=== PATIENT | female | born 1985 | race Caucasian/White ===

== ENCOUNTER 2017-04-22 09:33 | Emergency (ER) | payer OTHER, SELFPAY ==
[2017-04-22 09:34] VITALS: BP 112/69; PULSE 59; RESP 16; TEMP 36.4; O2SAT 99; BMI 20.8
--- NOTE | 2017-04-22 09:41 | CT_ITS ---
STUDY: CT ABDOMEN AND PELVIS WITHOUT CONTRAST REASON FOR EXAM: Female, 31 years old. Left flank pain. RADIATION DOSAGE (If Supplied By Facility): CTDIvol = ( 6.05 ) mGy, DLP = ( 395.10 ) mGycm TECHNIQUE: Transaxial images were obtained from the dome of the diaphragm to the symphysis pubis without oral contrast, and without intravenous contrast. Sagittal and coronal images were reconstructed. Individualized dose optimization techniques were used for this CT. COMPARISON: None. FINDINGS: The left lateral aspect of the lower chest and upper abdomen are not entirely included on the axial images. The visualized portions of lung bases are unremarkable. The visualized portions of the heart are within normal limits. The liver is enlarged. Normal gallbladder and extrahepatic biliary system. Normal spleen. The pancreas is suboptimally visualized without oral contrast and due to lack of intra-abdominal fat. Normal bilateral adrenal glands. There are multiple small nonobstructing right renal stones, the largest measures about 4 mm in the upper pole. There is no evidence of right hydronephrosis. There are few nonobstructing stones in the left kidney, the largest measures about 3 mm in the lower pole. There is mild left hydronephrosis. There is a 2 mm calcification in the left lower pelvis which could represent stone in the distal ureter. There are additional pelvic calcifications which could be due to phleboliths. The examination is limited due to significant artifacts. The stomach is not well-distended. Normal small intestine. There is fecal retention. The appendix is not definitely identified. Normal abdominal aorta. Normal inferior vena cava. Suboptimal evaluation of the retroperitoneum without contrast. The bladder is not well-distended. There is limited evaluation of the pelvic region due to artifacts. May be very small umbilical hernia containing fat. Normal osseous structures. CT/Abdomen/Pelvis without Cont IMPRESSION: Hepatomegaly. Multiple small bilateral nonobstructing renal stones. Mild left hydronephrosis. Possible 2 mm stone in the distal left ureter close to the ureterovesical junction. Limited examination without contrast and due to artifacts. Electronically Signed: Luan Verdugo MD at 11:16 EST Tel , Service support ,
[2017-04-22] MEDS: Ondansetron 4 MG/2 ML Vial IV (09:45)
[2017-04-22] MEDS: 0.9% Normal Saline 1,000 ML 125 ML IV (09:45)
[2017-04-22] MEDS: Ketorolac 30 MG/ML Syringe IV (09:46)
[2017-04-22 09:56] LABS: Absolute Lymphocyte Count 2.45 X10^3/ul (0.83-4.51); Absolute Neutrophil Count 6.4 X10^3/uL (2.0-7.7); Basophil# 0.09 X10^3/uL; Basophil% 0.9 % (0-1); Eosinophils% 1.1 % (0-5); Hematocrit 41.1 % (37-47); Hemoglobin 13.5 g/dl (12.0-15.0); Lymphocyte # 2.45 X10^3/ul (4.0); Lymphocyte % 25.8 % (19-41); Mean Corp Hgb Conc 32.8 g/gl (32-36); Mean Corpuscular Hgb 30.5 pg (27.0-32.0); Mean Platelet Vol. 10.6 fl (6.2-12.0); Monocyte# 0.45 X10^3/uL; Monocyte% 4.7 % (0-10); Neutrophil # 6.39 X10^3/uL (2.7-7.7); Neutrophil % 67.4 % (47-70); Platelet Count 225 K/mm3 (150-450); RBC Distribution Width CV 12.9 % (11.6-14.6); Red Blood Count 4.42 M/mm3 (4.2-5.4); White Blood Count 9.5 K/mm3 (4.4-11.0)
[2017-04-22 09:57] LABS: POSITIVE COUNT NO; POSITIVE DIFFERENTIAL NO; POSITIVE MORPHOLOGY NO
[2017-04-22 10:03] LABS: Anion Gap 7 (5-15); BUN 23 mg/dL (7-18); BUN/Creat Ratio 28.7 RATIO (10-20); Calcium,Total 9.2 mg/dL (8.5-10.1); Chloride 109 mmol/L (98-107); EST Glomerular Filtration Rate 89 mL/min (>60); Est Glom Filt Rate - Afr Amer 108 mL/min (>60); Estimated Creatinine Clearance 77.59 ml/min; Glucose 108 mg/dL (74-106); Potassium 4.3 mmol/L (3.5-5.1); Sodium Level 142 mmol/L (136-145)
[2017-04-22 10:18] LABS: Pregnancy, Serum, hCG Quali. NEGATIVE Negative (0-9 Nonpreg)
[2017-04-22 10:52] LABS: Color, Urine Yellow (Yellow); Glucose, Dipstick Normal (Normal); Ketone-Dipstick Negative (Negative); Leukocyte Esterase-Dipstick 100 /ul (Negative); Nitrite-Dipstick Negative (Negative); Occult Blood-Urine 250 /ul (Negative); Protein-Dipstick 30 mg/dl (Negative); Specific Gravity, Urine 1.015 (1.002-1.030); Urine Bilirubin Dipstick Negative (Negative); Urine Clarity Cloudy (Clear); Urine Urobilinogen Normal (Normal)
[2017-04-22 10:59] LABS: Bacteria RARE /hpf (None Seen); Mucous, Urine 2+ /hpf (<or=2+); Red Blood Cells-Urine 10-25 SEEN /hpf (0-5); Squamous Epithelial Cells - UA 0-5 SEEN /hpf (5-10)
[2017-04-22 11:00] LABS: White Blood Cells 5-10 SEEN /hpf (0-5)
[2017-04-22 11:39] VITALS: BP 115/70; PULSE 62; RESP 14; O2SAT 99
--- NOTE | 2017-04-22 11:41 | ED.VISSUMM ---
- ER Visit Summary Date of Service: 04/22/17 Chief Complaint: [Left flank pain] History of Present Illness: The patient is a 31 F [presents to the emergency department chief complaint left flank pain that started earlier today. Patient had sudden onset of pain. Patient describes nausea and vomiting. Patient denies urinary symptoms. Patient denies any fever. Patient states she noticed a little bit of pink urine yesterday. Patient states that off-and-on she has had some mild discomfort in her left leg for the last month. Patient has had history of kidney stone in the past.] Physical Examination: [HEENT-PERRLA, EOMI. Cranial nerves II through XII grossly intact. TMs clear. Mucous membranes moist. No adenopathy. Cardiovascular-regular rate and rhythm without murmur or ectopy Lungs-clear to auscultation, chest wall stable without crepitus or subcu emphysema Abdomen-normoactive bowel sounds, soft. Patient has mild tenderness over left lower quadrant and CVA tenderness on the left. There is no rebound, rigidity, or perineal signs.. Extremities-intact ?4, normal range of motion, normal pulses, atraumatic] Test Results: [CBC with differential obtained was normal. Chemistries unremarkable. Urinalysis showed 10-25 RBCs without signs of infection. HCG was negative. CT flank showed a 2 mm stone at the left UVJ.] Emergency Department Course and Treatment: [Patient initially was medicated with Toradol, Zofran, and morphine. She had good pain relief with that. Her pain did return and she was written for 4 more milligrams of morphine.] Treatment Plan: [Patient will be given urine strainers and a prescription for [place] and Naprosyn. 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 Patient advised to return if worsening pain, fever, vomiting, or condition should worsen in any way.] Impression: [Urolithiasis left sided] This note was generated with Luminescent dictation software. It may contain incorrect words, spelling, and punctuation that were not noted in review of the chart prior to signing ED Disposition - Plan for ED Patient: Chief Complaint: Flank Pain Referrals: Andrea Andrews MD [Primary Care Provider] -
--- NOTE | 2017-04-22 11:43 | ED.DEP ---
ED Disposition - Plan for ED Patient: Chief Complaint: Flank Pain Instructions: ED Stone Renal W Colic Prescriptions: Hydrocodone Bitart/Apap 5-325 [Andreas 5/325] 1 - 2 tab PO Q4H PRN PRN 5 Days #20 tab PRN Reason: Pain Ondansetron [Zofran Odt] 4 mg PO Q8H PRN PRN #10 tab PRN Reason: Nausea Naproxen [Naprosyn] 500 mg PO BID PRN #20 tab Referrals: Andrea Andrews MD [Primary Care Provider] - Godwin Mayo MD [STAFF PHYSICIAN] - 3-5 Days
[2017-04-22 11:52] VITALS: BP 120/70; PULSE 58; RESP 14; O2SAT 99
== END 2017-04-22 12:14 | disposition home or self-care (01) ==
PROVIDERS: Emergency Provider Emergency Medicine; Family Provider Family Medicine; PCP Family Medicine
DX: N20.1 Calculus of ureter (principal); Z87.442 Personal history of urinary calculi
CPT/HCPCS: 74176; 80048; 81001; 84703; 85025; 96361; 96374; 96375; 96376; 99283; J7030; A4216; J2405

== ENCOUNTER → 2017-05-20 10:28 | Outpatient (CLI) | payer OTHER, SELFPAY ==
--- NOTE | 2017-05-20 10:31 | US_ITS ---
STUDY: ABDOMINAL ULTRASOUND - RIGHT UPPER QUADRANT REASON FOR VISIT: Female, 31 years old. Right upper quadrant pain TECHNIQUE: Transverse and longitudinal imaging of the right upper quadrant was performed using real-time ultrasound. COMPARISON: CT abdomen and pelvis dated April 22, 2017 FINDINGS: Liver: The liver measures 16 cm. There is normal echogenicity of the liver. The direction of portal flow is hepatopetal. There is no demonstrated mass in the liver. Gallbladder: The gallbladder is normal in size. The gallbladder wall measures 2.0 mm. There is a negative sonographic Bourne's sign. There is no demonstrated pericholecystic fluid. There are no abnormalities in the lumen of the gallbladder. Common Bile Duct (C.B.D.): The common bile duct measures 2.6 mm. Pancreas: The pancreas was not visualized. Right Kidney: The right kidney measures 10.6 cm. The right cortex measures 1.5 cm. There is no demonstrated mass in the right kidney. There is prominence of the collecting system in the lower pole of the right kidney. There is an echogenic focus in the upper pole measuring about 5 mm. There is no demonstrated free fluid. US/Abdomen Limited IMPRESSION: Limited study. There is prominence of the collecting system in the lower pole of the right kidney. There may be a calyceal stone in the upper pole measuring 5 mm. No abnormalities are seen in the liver or gallbladder. Electronically Signed: Chasidy Jose MD at 2:15 EDT Tel Direct: [phone], Service support ,
== END ==
PROVIDERS: Family Provider Family Medicine; PCP Family Medicine; Visit Provider Family Medicine
DX: R10.11 Right upper quadrant pain (principal)
CPT/HCPCS: 76705

== ENCOUNTER → 2018-06-07 09:58 | Outpatient (CLI) | payer OTHER, SELFPAY ==
[2017-05-26 17:26] VITALS: BMI 19.3
[2018-06-07 10:30] LABS: Hematocrit 38.8 % (37-47); Hemoglobin 13.1 g/dl (12.0-15.0); Mean Corp Hgb Conc 33.8 g/gl (32-36); Mean Corpuscular Hgb 30.8 pg (27.0-32.0); Mean Corpuscular Volume 91.1 fL (81-99); Mean Platelet Vol. 10.4 fl (6.2-12.0); Platelet Count 216 K/mm3 (150-450); RBC Distribution Width CV 14.2 % (11.6-14.6); RBC Distribution Width SD 46.5 fl (35.1-43.9); Red Blood Count 4.26 M/mm3 (4.2-5.4); Scan Indicated on CBC? Y/N NO; White Blood Count 9.5 K/mm3 (4.4-11.0)
[2018-06-07 12:02] LABS: HIV - WCH Non-Reactive (Nonreactive); Rubella IgG 377.9 IU/mL
[2018-06-08 04:56] LABS: Rapid Plasmin Reagin (RPR) NONREACTIVE (NONREACTIVE)
[2018-06-08 11:25] LABS: HEPATITIS B SURFACE AG Negative (Negative)
== END ==
PROVIDERS: Family Provider Nurse Practitioner Family; PCP Nurse Practitioner Family; Referring Provider Obstetrics & Gynecology; Visit Provider Obstetrics & Gynecology
DX: Z34.81 Encounter for supervision of other normal pregnancy, first trimester (principal)
CPT/HCPCS: 36415; 85027; 86592; 86703; 86762; 86850; 86900; 87340

== ENCOUNTER 2018-11-28 09:10 | Inpatient (IN) | payer OTHER, SELFPAY ==
[2018-11-28 09:01] VITALS: BMI 25.0
[2018-11-28 09:01] LABS: ROM Internal Control Test YES-OK TO RESULT pt. (Internal QC)
[2018-11-28 09:03] LABS: ROM Patient Test POSITIVE (Negative); Record Kit Lot#, ROM+ J8255
--- NOTE | 2018-11-28 09:17 | PCM.HP.OB ---
- Problem List (1) PROM (premature rupture of membranes) Status: Acute (2) Post-dates Status: Acute History Date of Admission: 10/16/16 Final MICK: 11/25/18 Final MICK Source: US <20 weeks Gestational age: 40 Weeks and 3 Days History of this : This is a 33 year-old, G [3], P [2001], at 40weeks 3 days gestational age by first trimester US. Presented with complaint of leakage of fluid this am around 0400. Upon arrival ROM plus positive and admission to L&D. Good movement, denies vaginal bleeding. Medical History: Medical History (Last Updated 05/26/17 @ 17:29 by Nirmala Solis) Gave to child recently Z39.0 Allergies No Known Allergies Allergy (Verified 11/28/18 09:04) Home Medications: Home Medications Vits [Prenatabs FA ] 1 tab PO DAILY 08/12/14 Smoking Status: Never smoker Alcohol: None Number of Fetus(es): 1 NST - FHR Rate Baby A Baseline: 125 Variability:: Moderate Accelerations:: 15 x 15 NST Reactive:: Yes FHR Category:: Category I Uterine Activity:: Irregular History Past Pregnancies: Past Pregnancies Delivery Date Name GA/Weeks Outcome Route Weight Infant Gender Labor Length Anesthesia Delivery Location Provider FOB Labs: Mom's Problem List Problem Status Onset Code PROM (premature rupture of membranes) Acute O42.90 Post-dates Acute O48.0 Mom's Labs & Results 11/28/18 11/28/18 11/28/18 08:10 09:38 09:38 WBC 9.8 RBC 3.90 L Hgb 12.9 Hct 38.6 MCV 99.0 MCH 33.1 H MCHC 33.4 RDW Std Deviation 49.1 H RDW Coeff of Minnie 13.5 Plt Count 167 MPV 11.0 Immature Gran % (Auto) 0.500 Neut % (Auto) 73.1 H Lymph % (Auto) 19.5 [place] % (Auto) 5.9 Eos % (Auto) 0.6 Baso % (Auto) 0.4 Absolute Neuts (auto) 7.2 Absolute Lymphs (auto) 1.91 Nucleated RBC % 0 Vag Amniotic Fld Detect POSITIVE H Blood Type A POSITIVE Antibody Screen NEGATIVE Course Did the patient receive Yes care? Labs Blood Type: A RH: POSITIVE RPR/VDRL/Syphilis Nonreactive Rubella status Immune HbSAg Negative Date Done: 06/07/18 Chlamydia Negative Gonorrhea Negative HIV/AIDS Non-Reactive Group B Strep: Negative Current Obstetrical History Gestational Diabetes No Incompetent Cervix No Infertility No IUGR No Macrosomia No Hypertension/Pre-eclampsia No Placenta Previa/Abruption No PTL/PROM No Uterine anomaly No Oligohydramnios No Polyhydramnios No Multiple gestation No Past Medical History Asthma No Diabetes No Hypertension No Heart disease No Mitral valve prolapse No Neurologic/Seizure disorder/ No Migraines Kidney disease No Liver disease No Varicosities No Clotting disorders/Hx of DVT No Thyroid Dysfunction No Other medical diseases No Psychiatric disorders No Major trauma No Abnormal PAP smear No Sleep apnea No Mammogram in the last 2 years No Social History Marital Status: Alleged father Iron Hx Smoking No Smoking Status Never smoker Expected Infant Delivery Method: Spontaneous Vaginal Review of Systems Constitutional: Denies: Chills, Fever, Weight Change HEENT: Denies: Head Aches, Sinus Congestion, Sinus Drainage Cardiovascular: Denies: Chest Pain, Palpitations Respiratory: Denies: Cough, Shortness of breath at rest, Sputum production Gastrointestinal: Denies: Abdominal Pain, Nausea, Vomiting Genitourinary: Denies: Dysuria Musculoskeletal: Denies: Joint Pain, Joint Tenderness Skin: Denies: Rash, Wounds Neurological: Denies: Numbness, Tingling, Focal weakness Psychiatric: Denies: Anxiety, Depression, Homicidal Ideations, Suicidal Ideations Physical Exam General: Alert, Oriented x3, No apparent distress HEENT: Atraumatic, Normocephalic Cardiovascular: Regular rate, Regular Rhythm, No murmurs Lungs: Clear to auscultation, Normal air movement, No rhonchi, No wheeze Abdomen: Gravid Extremities:: No edema Neurological: Deep Tendon Reflexes 2+/4 and Symmetrical. 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 PROM Category1 FHT P: 1) Reviewed PROM with expectant vs. active management. R/B/A reviewed. Would like to continue with active management and Pitocin augmentation. 2) Admit to L&D, routine labs, IV 3) Pitocin augmentation per protocol 4) Would like unmedicated but open to epidural 5) collaborating physician and updated on patient status.
[2018-11-28] MEDS: Lactated Ringers 1,000 ML 50 ML IV (09:40)
[2018-11-28] MEDS: Oxytocin 30 units/NS 500 ml 30 UNITS/500 ML IV.SOLN IV (09:46)
[2018-11-28 09:58] LABS: Absolute Lymphocyte Count 1.91 X10^3/uL (0.83-4.51); Absolute Neutrophil Count 7.2 X10^3/uL (2.0-7.7); Basophil# 0.04 X10^3/uL; Basophil% 0.4 % (0-1); Eosinophil# 0.06 X10^3/uL; Eosinophils% 0.6 % (0-5); Hematocrit 38.6 % (37-47); Hemoglobin 12.9 g/dL (12.0-15.0); Lymphocyte # 1.91 X10^3/ul (4.0); Lymphocyte % 19.5 % (19-41); Mean Corp Hgb Conc 33.4 g/dL (32-36); Mean Corpuscular Hgb 33.1 pg (27.0-32.0); Monocyte# 0.58 X10^3/uL; Monocyte% 5.9 % (0-10); NRBC Flagged by Analyzer 0 % (0-5); Neutrophil # 7.17 X10^3/uL (2.7-7.7); Neutrophil % 73.1 % (47-70); Platelet Count 167 K/mm3 (150-450); RBC Distribution Width CV 13.5 % (11.6-14.6); RBC Distribution Width SD 49.1 fl (35.1-43.9); White Blood Count 9.8 K/mm3 (4.4-11.0)
--- NOTE | 2018-11-28 12:33 | PN.OBGYN_ITS ---
Patient Problems: Active and Suspected Problems (Last Updated 05/26/17 @ 17:29 by Nirmala Solis) PROM (premature rupture of membranes) (Acute) Post-dates (Acute) Subjective: Coping well with labor contractions. Sitting up on peanut ball, family at bedside. Objective: FHT 130, moderate variability, accels, no decels, Category 1 TOCO: every 4 minutes, mild SVE:4cm/80%/-2 vertex presentation. Forebag present. AROM for moderate amount of clear fluid, tolerated well. 4.5cm/80%/-1 after rupture. - Physical Exam Weight: 136 lb 10.986 oz Body Mass Index (BMI) 25.0 Laboratory Tests Past 24 Hrs 11/28/18 11/28/18 11/28/18 08:10 09:38 09:38 WBC 9.8 RBC 3.90 L Hgb 12.9 Hct 38.6 MCV 99.0 MCH 33.1 H MCHC 33.4 RDW Std Deviation 49.1 H RDW Coeff of Minnie 13.5 Plt Count 167 MPV 11.0 Immature Gran % (Auto) 0.500 Neut % (Auto) 73.1 H Lymph % (Auto) 19.5 [place] % (Auto) 5.9 Eos % (Auto) 0.6 Baso % (Auto) 0.4 Absolute Neuts (auto) 7.2 Absolute Lymphs (auto) 1.91 Nucleated RBC % 0 Vag Amniotic Fld Detect POSITIVE H Blood Type A POSITIVE Antibody Screen NEGATIVE Medical Necessity - Tobacco Use Smoking Status: Never smoker Assessment/Plan All Active Problems (Last Updated 05/26/17 @ 17:29 by Nirmala Solis) PROM (premature rupture of membranes) (Acute) Post-dates (Acute) Otitis media (Acute) A:PROM Category 1 FHT Labor augmentation P: 1)Continue with Pitocin augmentation, Pitocin at 8mu's 2) Epidural for pain management upon patient request
[2018-11-28] MEDS: Lactated Ringers 500 ML 999 ML IV ×2 (14:35→15:16)
[2018-11-28] MEDS: fentaNYL-bupivacaine (epidural) 100 ML BAG EPIDURAL (15:12)
[2018-11-28] MEDS: Oxytocin 30 units/NS 500 ml 30 UNITS/500 ML IV.SOLN 334 UNITS IV (16:07)
--- NOTE | 2018-11-28 16:22 | PCM.OPRPT ---
Problem List (1) PROM (premature rupture of membranes) Status: Acute (2) Post-dates Status: Acute (3) Vaginal delivery Status: Acute Vaginal Delivery Maternal Presentation: Spontaneous Rupture of Membranes Amniotic Membrane Rupture Type: Spontaneous - AROM forebag moderate amount of clear fluid Amniotic Fluid Description: Clear Final MICK: 11/25/18 Gestational age: 40 Weeks and 3 Days Date of Procedure: 11/28/18 Pre-Operative Diagnosis: PROM Post-Operative Diagnosis: Surgery/ Procedure Performed: Spontaneous Vaginal Delivery Type of Anesthesia: Epidural Description of Procedure: Progressed to completed with strong urge to push. Epidural not fully effective, feeling lots of pressure. of viable female infant over intact perineum. APGARS 8,9. Infant head delivered with body forthcoming, poor pushing efforts. Maternal efforts resumed and shoulders delivered. Infant placed on maternal abdomen, mouth and nares suctioned for secretions. Spontaneous cry. Pitocin started for active 3rd stage management. Cord clamped and cut after pulsations ceased. Placenta delivered with maternal effort, intact, 3 vessel cord. Perineum inspected and intact. EBL 300ml, fundus firm and hemostasis achieved. Vaginal sweep completed. notified of delivery. Mom and baby stable. Family bonding well. Presentation: Vertex Placental Delivery Description: Spontaneous Placenta Disposition: [facility] Cord Vessel Description: 3 Vessels Cord Entanglement: None Estimated Blood Loss: 300ml Infant A gender: Female (1 minute): 8 (5 minute): 9 Episiotomy Description: None Laceration: None Medications given after delivery: IV Pitocin Complications: None
[2018-11-28 20:47] VITALS: BP 94/56; PULSE 79; RESP 15; TEMP 37.2; O2SAT 94
[2018-11-29] VITALS: BP 101/57; PULSE 73; RESP 15; TEMP 36.7; O2SAT 97
[2018-11-29 03:39] VITALS: BP 99/61; PULSE 60; RESP 15; TEMP 36.7; O2SAT 99
[2018-11-29 07:15] LABS: Hematocrit 38.3 % (37-47); Hemoglobin 12.8 g/dL (12.0-15.0); Mean Corp Hgb Conc 33.4 g/dL (32-36); Mean Corpuscular Hgb 33.1 pg (27.0-32.0); Mean Platelet Vol. 10.6 fl (6.2-12.0); Platelet Count 148 K/mm3 (150-450); RBC Distribution Width CV 13.5 % (11.6-14.6); RBC Distribution Width SD 48.4 fl (35.1-43.9); Red Blood Count 3.87 M/mm3 (4.2-5.4); White Blood Count 13.2 K/mm3 (4.4-11.0)
[2018-11-29 08:06] VITALS: BP 105/57; PULSE 92; RESP 16; TEMP 36.2; O2SAT 100
--- NOTE | 2018-11-29 09:39 | PCM.PN.OB ---
Patient Problems: Active and Suspected Problems (Last Updated 05/26/17 @ 17:29 by Nirmala Solis) PROM (premature rupture of membranes) (Acute) Post-dates (Acute) Vaginal delivery (Acute) Subjective: No complaints - Physical Exam General: Alert, Oriented x3 Abdomen: Soft, Non Tender, Non-Distended - ff mid & below umb Extremities: No Calf Tenderness Vital Signs Temp Pulse Resp BP Pulse Ox 97.1 F L 92 16 105/57 L 100 11/29/18 08:06 11/29/18 08:06 11/29/18 08:06 11/29/18 08:06 11/29/18 08:06 Oxygen Delivery Method Room Air Weight: 136 lb 10.986 oz Body Mass Index (BMI) 25.0 Intake and Output for Last 24 Hours 11/27/18 11/28/18 11/29/18 23:59 23:59 23:59 Intake Total 2192.29 / 2192.29 Output Total 1999 Balance 192.29 / 192.29 Laboratory Tests Past 24 Hrs 11/28/18 11/28/18 11/29/18 09:38 09:38 07:09 WBC 9.8 13.2 H RBC 3.90 L 3.87 L Hgb 12.9 12.8 Hct 38.6 38.3 MCV 99.0 99.0 MCH 33.1 H 33.1 H MCHC 33.4 33.4 RDW Std Deviation 49.1 H 48.4 H RDW Coeff of Minnie 13.5 13.5 Plt Count 167 148 L MPV 11.0 10.6 Immature Gran % (Auto) 0.500 Neut % (Auto) 73.1 H Lymph % (Auto) 19.5 [place] % (Auto) 5.9 Eos % (Auto) 0.6 Baso % (Auto) 0.4 Absolute Neuts (auto) 7.2 Absolute Lymphs (auto) 1.91 Nucleated RBC % 0 Blood Type A POSITIVE Antibody Screen NEGATIVE Medical Necessity - Tobacco Use Smoking Status: Never smoker Assessment/Plan All Active Problems (Last Updated 05/26/17 @ 17:29 by Nirmala Solis) PROM (premature rupture of membranes) (Acute) Post-dates (Acute) Vaginal delivery (Acute) Otitis media (Acute) PPD#1 D/c home later today per patient request
--- NOTE | 2018-11-29 09:40 | DCINST_ITS ---
Discharge Diet: No Restrictions Discharge Activity: May Drive, May Shower May resume sexual activity in: 6 weeks Additional Instructions: If you experience any of the following, contact your healthcare provider. * Bleeding that soaks a pad every hour for 2 hours * Fever 100.4 or higher * Unrelieved incision or abdominal pain * Swelling, redness, discharge or bleeding from your incision or episiotomy site * Your incision begins to separate * Problems urinating (including inability to urinate or burning while urinating). * Visual changes * Severe headache * Flu-like symptoms * Pain or redness in one of both of your breasts * Pain, warmth, tenderness or swelling in your legs, especially the calf area * Frequent nausea and vomiting * Symptoms of depression or anxiety If you experience any of the following, call 911 or go to the nearest Emergency Room. * Chest pain * Problems breathing * Seizure activity * Partial or complete paralysis of a body part, slurred speech, weakness or drooping of the face, or a sudden inability to walk or hold your balance Allergies/Adverse Reactions: Allergies No Known Allergies Allergy (Verified 11/28/18 09:04) Medications to take at Discharge Vits [Prenatabs FA ] 1 tab PO DAILY 08/12/14 Primary Care Physician: Care Physician,No Primary [Primary Care Provider] - Test Results: Test results from this visit will be discussed in further detail at your follow- up appointment, if applicable.
--- NOTE | 2018-11-29 09:40 | PCM.DCVAG ---
Discharge Diet: No Restrictions Discharge Activity: May Drive, May Shower May resume sexual activity in: 6 weeks Additional Instructions: If you experience any of the following, contact your healthcare provider. Bleeding that soaks a pad every hour for 2 hours Fever 100.4 or higher Unrelieved incision or abdominal pain Swelling, redness, discharge or bleeding from your incision or episiotomy site Your incision begins to separate Problems urinating (including inability to urinate or burning while urinating). Visual changes Severe headache Flu-like symptoms Pain or redness in one of both of your breasts Pain, warmth, tenderness or swelling in your legs, especially the calf area Frequent nausea and vomiting Symptoms of depression or anxiety If you experience any of the following, call 911 or go to the nearest Emergency Room. Chest pain Problems breathing Seizure activity Partial or complete paralysis of a body part, slurred speech, weakness or drooping of the face, or a sudden inability to walk or hold your balance Allergies/Adverse Reactions: Allergies No Known Allergies Allergy (Verified 11/28/18 09:04) Medications to take at Discharge Vits [Prenatabs FA ] 1 tab PO DAILY 08/12/14 Primary Care Physician: Care Physician,No Primary [Primary Care Provider] - Test Results: Test results from this visit will be discussed in further detail at your follow-up appointment, if applicable.
[2018-11-29 14:00] VITALS: BP 102/60; PULSE 77; RESP 16; TEMP 37; O2SAT 99
[2018-11-29 20:11] VITALS: BP 104/65; PULSE 82; RESP 16; TEMP 37.1; O2SAT 96
[2018-11-29] MEDS: Ibuprofen 600 MG Tablet PO (22:47)
[2018-11-30 01:25] VITALS: BP 80/47; PULSE 60; RESP 14; TEMP 36.8
--- NOTE | 2018-11-30 07:27 | PCM.PN.OB ---
Patient Problems: Active and Suspected Problems (Last Updated 05/26/17 @ 17:29 by Nirmala Solis) PROM (premature rupture of membranes) (Acute) Post-dates (Acute) Vaginal delivery (Acute) Subjective: No complaints - Physical Exam General: Alert, Oriented x3 Abdomen: Soft, Non Tender, Non-Distended - ff mid & below umb Extremities: No Calf Tenderness Vital Signs Temp Pulse Resp BP Pulse Ox 98.2 F 60 14 80/47 L 96 11/30/18 01:25 11/30/18 01:25 11/30/18 01:25 11/30/18 01:25 11/29/18 20:11 Oxygen Delivery Method Room Air Weight: 136 lb 10.986 oz Body Mass Index (BMI) 25.0 Intake and Output for Last 24 Hours 11/28/18 11/29/18 11/30/18 23:59 23:59 23:59 Intake Total 2192.29 / 2192.29 Output Total 1999 Balance 192.29 / 192.29 Medical Necessity - Tobacco Use Smoking Status: Never smoker Assessment/Plan All Active Problems (Last Updated 05/26/17 @ 17:29 by Nirmala Solis) PROM (premature rupture of membranes) (Acute) Post-dates (Acute) Vaginal delivery (Acute) Otitis media (Acute) PPD#2 D/c home
[2018-11-30] MEDS: Ibuprofen 600 MG Tablet PO (08:51)
[2018-11-30 09:00] VITALS: BP 111/64; PULSE 90; RESP 16; TEMP 36.5
== END 2018-11-30 12:05 | disposition home or self-care (01) | DRG 807 ==
LOC: WPOUT 09:16 → WP 09:39
PROVIDERS: Admitting Provider Advanced Practice Midwife; Referring Provider Advanced Practice Midwife; Visit Provider Advanced Practice Midwife
DX: O42.90 Premature rupture of membranes, unspecified as to length of time between rupture and onset of labor, unspecified weeks of gestation (principal); O48.0 Post-term pregnancy; Z3A.40 40 weeks gestation of pregnancy; Z37.0 Single live birth
CPT/HCPCS: 59025; 59050; 84112; 85025; 85027; 86850; 86900; 86901; 99218; J7120; G0378

== ENCOUNTER 2019-01-19 15:16 | Emergency (ER) | payer OTHER, SELFPAY ==
[2019-01-19 15:17] VITALS: BP 99/69; PULSE 72; RESP 16; TEMP 36.4; O2SAT 99; BMI 22.1
--- NOTE | 2019-01-19 15:30 | CT_ITS ---
STUDY: CT ABDOMEN AND PELVIS WITHOUT CONTRAST REASON FOR EXAM: Female, 33 years old. Right flank pain with history of kidney stones. 7 weeks . RADIATION DOSAGE (If Supplied By Facility): CTDIvol = ( 6.14 ) mGy, DLP = ( 276.14 ) mGycm TECHNIQUE: Transaxial images were obtained from the dome of the diaphragm to the symphysis pubis without oral contrast, and without intravenous contrast. Sagittal and coronal images were reconstructed. Individualized dose optimization techniques were used for this CT. COMPARISON: Prior abdomen and pelvic CT exam of April 22, 2017 FINDINGS: Minimal posterior atelectasis at the left lung base. The visualized portions of the heart are within normal limits. Normal liver. Normal gallbladder and extrahepatic biliary system. Normal spleen. Normal pancreas. Normal bilateral adrenal glands. Hydronephrosis of the right kidney and a dilated ureter secondary to a 2 mm stone in the distal right ureter just above the ureterovesicular junction. Additional nonobstructing 2 mm stone in the upper pole and a 1 mm stone in the midpole. Normal size of the left kidney without hydronephrosis. 4 x 2 mm nonobstructing stone in the lower pole. The former stone at the left ureterovesicular junction has passed. In addition an additional lower pole stone of the left kidney has also passed. Normal visualized stomach. Normal small intestine. Normal colon. There is non-visualization of the appendix. Normal abdominal aorta. Normal inferior vena cava. Normal retroperitoneum. Nondistended urinary bladder. Bulky uterus consistent with status. Otherwise negative for pelvic mass or free fluid of the pelvis. Mild diastases of the upper abdominal wall. Normal osseous structures. CT/Abdomen/Pelvis without Cont IMPRESSION: Mild hydronephrosis of the right kidney and a dilated ureter secondary to a 2 mm stone just above the right ureterovesicular junction. 2 additional nonobstructing stones in the right kidney. No hydronephrosis of the left kidney. Prior left ureteral stone and one additional nonobstructing stone from the prior exam are now absent. There is a residual 4 x 2 mm nonobstructing stone in the lower pole of the left kidney. No additional acute abdominal or pelvic findings. Electronically Signed: Sade Bonilla MD at 17:34 EST , Service support ,
--- NOTE | 2019-01-19 15:31 | ED.DCSUM_ITS ---
History of Present Illness Chief Complaint: Complaint Informant: Patient Current Severity: Moderate Maximum Severity: Moderate Narrative: She developed right-sided flank pain earlier this morning. He was more of a gradual onset, pain is constant but she does have episodes of sharp stabbing pain in her flank region. She has no abdominal pain at this time, she has urgency and frequency. She does not have any gross hematuria. No fever or chills. Pain is moderate. Past Medical History - Allergies and Home Meds Allergies/Adverse Reactions: Allergies No Known Allergies Allergy (Verified 11/28/18 09:04) Primary Care Physician: Care Physician,No Primary [Primary Care Provider] - Past Medical History: - - He is 7 weeks . She is nursing. She does not take any medications. Lives: Spouse/ Significant Other Smoking Status: Never smoker Review of Systems General: Denies: Fever Cardiovascular: Denies: Chest pain, Palpitations Respiratory: Denies: Dyspnea Gastrointestinal: Reports: Nausea, - - Flank pain as in HPI. Denies: Abdominal pain, Vomiting Musculoskeletal: Denies: Myalgias Skin: Denies: Rash Neurological: Denies: Weakness Psych: Denies: Anxiety Endocrine: Reports: Polyuria Hematologic: Denies: Easy bruising Physical Exam Vital Signs/Narrative: Vital Signs Temp Pulse Resp BP Pulse Ox 01/19/19 15:17 97.6 F L 72 16 99/69 99 Inital Vital Signs reviewed: Yes General: Well nourished, Well developed, Acute Distress ENT: Moist mucous membranes Cardiovascular: Regular rate, Regular rhythm, Tachycardia Respiratory: No distress Abdomen: Soft, Nontender, Nondistended, No masses, - : - - Deferred Back: Normal Inspection, CVA tenderness Extremities: No edema Skin: Normal color, No rash Neurological: Alert, Oriented x3 Psychological: Normal affect Diagnostic/Tx/Re-eval - Medical Decision Making Patient has a 2 mm UVJ stone. She has hematuria and otherwise normal work-up. She did require a few doses of opiates but now she is pain-free and signif icantly improved I will discharge her home with Percocet, Zofran, Naprosyn and Flomax. I will refer to urology as I Discharge stable condition ED Disposition - Plan for ED Patient: Disposition: Home or Assisted Living Diagnosis: Kidney stone Instructions: Understanding Kidney Stones Prescriptions: Tamsulosin HCl [Flomax] 0.4 mg PO DAILY #4 cap Prescription Printed Naproxen [Naprosyn] 500 mg PO BID PRN #20 tab Prescription Printed Oxycodone HCl/Acetaminophen [Percocet 5/325] 1 tab PO Q6H PRN PRN 3 Days #12 tab PRN Reason: Pain Prescription Printed Ondansetron [Zofran Odt] 4 mg PO Q8H PRN PRN #10 tab PRN Reason: Nausea Prescription Printed Referrals: Godwin Mayo MD [STAFF PHYSICIAN] - 3-5 Days
[2019-01-19] MEDS: 0.9% Normal Saline 1,000 ML 1000 ML IV (15:38)
[2019-01-19] MEDS: Ondansetron 4 MG/2 ML Vial IV ×2 (15:38→16:24)
[2019-01-19] MEDS: Morphine 4 MG/ML Syringe IV (15:39)
[2019-01-19 15:42] LABS: Absolute Lymphocyte Count 2.79 X10^3/uL (0.83-4.51); Absolute Neutrophil Count 5.4 X10^3/uL (2.0-7.7); Basophil# 0.06 X10^3/uL; Basophil% 0.7 % (0-1); Eosinophil# 0.08 X10^3/uL; Eosinophils% 0.9 % (0-5); Hematocrit 41.7 % (37-47); Hemoglobin 13.8 g/dL (12.0-15.0); Lymphocyte # 2.79 X10^3/ul (4.0); Mean Corp Hgb Conc 33.1 g/dL (32-36); Mean Corpuscular Hgb 31.8 pg (27.0-32.0); Mean Corpuscular Volume 96.1 fL (81-99); Mean Platelet Vol. 10.5 fl (6.2-12.0); Monocyte# 0.39 X10^3/uL; Monocyte% 4.5 % (0-10); NRBC Flagged by Analyzer 0 % (0-5); Neutrophil # 5.37 X10^3/uL (2.7-7.7); Neutrophil % 61.4 % (47-70); Platelet Count 221 K/mm3 (150-450); RBC Distribution Width CV 11.9 % (11.6-14.6); RBC Distribution Width SD 42.1 fl (35.1-43.9); Red Blood Count 4.34 M/mm3 (4.2-5.4); White Blood Count 8.7 K/mm3 (4.4-11.0)
[2019-01-19 15:57] LABS: ALB/GLOB Ratio 1.3 RATIO (0.9-2.4); AST(SGOT) 18 U/L (15-37); Alanine Aminotransfer ALT/SGPT 26 U/L (13-56); Albumin, Serum 4.2 g/dL (3.2-5.0); Alkaline Phosphatase 59 U/L (45-117); Anion Gap 7 (5-15); BUN 21 mg/dL (7-18); BUN/Creat Ratio 25.5 RATIO (10-20); Calcium,Total 9.1 mg/dL (8.5-10.1); Chloride 108 mmol/L (98-107); Creatinine, Serum 0.82 mg/dL (0.55-1.02); EST Glomerular Filtration Rate 85 mL/min (>60); Est Glom Filt Rate - Afr Amer 103 mL/min (>60); Estimated Creatinine Clearance 74.32 ml/min; Globulin 3.3 g/dL (2.2-4.2); Glucose 98 mg/dL (74-106); Potassium 3.8 mmol/L (3.5-5.1); Protein, Total 7.5 g/dL (6.4-8.2); Sodium Level 141 mmol/L (136-145)
[2019-01-19] MEDS: Ketorolac 15 MG/ML Vial IV (16:24)
[2019-01-19] MEDS: 0.9% Normal Saline 1,000 ML 999 ML IV (16:24)
[2019-01-19] MEDS: HYDROmorphone 1 MG/ML Syringe IV ×3 (16:25→18:56)
[2019-01-19 17:05] VITALS: BP 107/79; PULSE 69; RESP 18; O2SAT 100
[2019-01-19 18:59] LABS: Internal QC Validated? YES +Cl - CLEAR BKGD; Pregnancy, Urine Negative Negative
[2019-01-19 19:00] VITALS: BP 97/62; PULSE 68; RESP 16; O2SAT 95
[2019-01-19 19:01] LABS: Color, Urine Yellow (Yellow); Glucose, Dipstick Normal (Normal); Leukocyte Esterase-Dipstick 25 /ul (Negative); Nitrite-Dipstick Negative (Negative); Occult Blood-Urine 250 /ul (Negative); Protein-Dipstick 30 mg/dl (Negative); Urine Bilirubin Dipstick Negative (Negative); Urine Clarity Clear (Clear); Urine Urobilinogen Normal (Normal)
[2019-01-19 19:02] LABS: Ketone-Dipstick 150 mg/dl (Negative)
[2019-01-19 19:09] LABS: Red Blood Cells-Urine > 100 SEEN /hpf (0-5); Squamous Epithelial Cells - UA 0-5 SEEN /hpf (5-10); White Blood Cells 5-10 SEEN /hpf (0-5)
[2019-01-19 19:10] LABS: Bacteria 1+ /hpf (None Seen); Mucous, Urine 2+ /hpf (<or=2+)
== END 2019-01-19 19:50 | disposition home or self-care (01) ==
PROVIDERS: Emergency Provider Emergency Medicine
DX: O90.89 Other complications of the puerperium, not elsewhere classified (principal); N13.2 Hydronephrosis with renal and ureteral calculous obstruction; Z79.899 Other long term (current) drug therapy; Z87.442 Personal history of urinary calculi
CPT/HCPCS: 74176; 80053; 81001; 81025; 85025; 96361; 96374; 96375; 96376; 99283; J7030; A4216; J2405

== ENCOUNTER 2019-11-13 19:44 | Outpatient (RCR) | payer OTHER, SELFPAY | END 2019-11-27 23:59 | LOC: EMPH 19:44 | PROVIDERS: Visit Provider Family Medicine Geriatric Medicine | DX: Z11.59 Encounter for screening for other viral diseases (principal) | CPT/HCPCS: 87635; U0003 ==

== ENCOUNTER 2019-12-26 19:45 | Outpatient (RCR) | payer OTHER, SELFPAY | END 2019-12-28 23:59 | LOC: EMPH 19:45 | PROVIDERS: Visit Provider Family Medicine Geriatric Medicine | DX: Z03.818 Encounter for observation for suspected exposure to other biological agents ruled out (principal) | CPT/HCPCS: 87426 ==

== ENCOUNTER 2020-01-22 10:59 | Outpatient (RCR) | payer OTHER, SELFPAY | END 2020-01-27 23:59 | LOC: EMPH 10:59 | PROVIDERS: Visit Provider Family Medicine Geriatric Medicine | DX: Z03.818 Encounter for observation for suspected exposure to other biological agents ruled out (principal) | CPT/HCPCS: 87426 ==

== ENCOUNTER 2020-01-30 15:48 | Outpatient (RCR) | payer OTHER, SELFPAY | END 2020-02-27 23:59 | LOC: EMPH 15:48 | PROVIDERS: Visit Provider Family Medicine Geriatric Medicine | DX: Z03.818 Encounter for observation for suspected exposure to other biological agents ruled out (principal) | CPT/HCPCS: 87426 ==

== ENCOUNTER 2020-03-24 13:47 | Outpatient (RCR) | payer OTHER, SELFPAY | END 2020-03-29 23:59 | LOC: EMPH 13:47 | PROVIDERS: Visit Provider Family Medicine Geriatric Medicine | DX: Z03.818 Encounter for observation for suspected exposure to other biological agents ruled out (principal) | CPT/HCPCS: 87426 ==

== ENCOUNTER 2020-06-12 09:25 | Outpatient (RCR) | payer OTHER, SELFPAY | END 2020-06-26 23:59 | LOC: EMPH 09:25 | PROVIDERS: Referring Provider Family Medicine Geriatric Medicine; Visit Provider Family Medicine Geriatric Medicine | DX: Z03.818 Encounter for observation for suspected exposure to other biological agents ruled out (principal) | CPT/HCPCS: 87426 ==

== ENCOUNTER 2021-01-04 11:00 | Outpatient (RCR) | payer OTHER, SELFPAY | END 2021-01-26 23:59 | LOC: EMPH 11:00 | PROVIDERS: Referring Provider Family Medicine Geriatric Medicine; Visit Provider Family Medicine Geriatric Medicine | DX: Z03.818 Encounter for observation for suspected exposure to other biological agents ruled out (principal) | CPT/HCPCS: 87426 ==

== ENCOUNTER → 2021-08-19 | Outpatient (CLI) | payer OTHER, SELFPAY ==
[2021-08-19 10:25] LABS: White Blood Cells 0 SEEN /hpf (0-5)
[2021-08-19 10:51] LABS: Color, Urine Yellow (Yellow); Glucose, Dipstick Normal (Normal); Ketone-Dipstick Negative (Negative); Leukocyte Esterase-Dipstick Negative /ul (Negative); Nitrite-Dipstick Negative (Negative); Occult Blood-Urine 250 /ul (Negative); Protein-Dipstick Negative (Negative); Urine Bilirubin Dipstick Negative (Negative); Urine Clarity Clear (Clear); Urine Urobilinogen Normal (Normal)
[2021-08-19 11:05] LABS: Bacteria 1+ /hpf (None Seen); Mucous, Urine 0 SEEN /hpf (<or=2+); Red Blood Cells-Urine 0-5 SEEN /hpf (0-5); Squamous Epithelial Cells - UA 0-5 SEEN /hpf (5-10)
== END | disposition home or self-care (01) ==
LOC: LABSPEC 10:02
PROVIDERS: Visit Provider Physician Assistant Surgical
DX: R30.9 Painful micturition, unspecified (principal)
CPT/HCPCS: 81001; 87086

== ENCOUNTER 2022-01-28 05:10 | Emergency (ER) | payer OTHER, SELFPAY ==
[2022-01-28 05:11] VITALS: BP 107/66; PULSE 66; RESP 18; TEMP 36.7; O2SAT 100; BMI 21.2
--- NOTE | 2022-01-28 05:29 | EDS_ITS ---
HPI History of Present Illness Chief Complaint: Flank Pain Narrative Narrative: 36-year-old female here with flank pain, nausea vomiting. Patient states he developed acute onset of right-sided flank pain that is since resolved. She states associated with nausea and vomiting. States her symptoms resolved on the way here. States she has been suffering from urgency and occasional hematuria over the last several weeks to months. Denies any headache, chest pain or shortness of breath. Denies abdominal pain history abdominal surgeries. She is currently on her period. Old chart reviewed: CT scan from December 2018 shows 2 mm nephrolithiasis. [facility] Medical History Gave to child recently Home Medications ondansetron 4 mg disintegrating tablet 4 mg PO Q8H PRN nausea and vomiting #10 tabs 01/28/22 [Rx Last Taken Unknown] Allergy/AdvReac Type Severity Reaction Status Date / Time No Known Allergies Allergy Verified 01/28/22 05:15 Family History (Updated 05/26/17 @ 17:29 by Nirmala Solis) Other Breast cancer Thyroid cancer Social History (Updated 05/26/17 @ 17:31 by Daljit GRAF, PA) Smoking Status: Never smoker alcohol intake: never ROS ROS ED ROS Narrative Constitutional: Denies fever HEENT: Denies sore throat Neck: Denies neck pain Cardiovascular: Denies chest pain, syncope Respiratory: Denies shortness of breath GI: Endorses nausea and vomiting : Flank pain Musculoskeletal: Denies muscle or joint pain Neurologic: Denies numbness weakness or loss of sensation Skin: denies rash EXAM Physical Exam Narrative Exam Narrative: Nursing triage notes reviewed, Vital signs reviewed Constitutional: please see mdm HENT: MMM Eyes: Pupils equal round and reactive to light, Extraocular muscles intact Neck: No stridor, no JVD, full neck ROM Lungs: Clear to auscultation, No wheezing or rales. No increased work of breathing, no conversational dyspnea, no accessory muscle use, no nasal flaring. No respiratory distress noted Heart: Regular rate and rhythm, No murmurs, No rubs and No gallops, 2+ distal pulses (radial, femoral, posterior tibial) in all extremities Abdomen: Soft, there is no tenderness, rigidity, rebound or guarding, no obvious peritoneal signs, no palpable pulsatile abdominal masses, no auscultated abdominal bruit : No CVAT Extremities: No edema back: Right lower paraspinal muscle tenderness Neuro: No focal neurological deficits, cranial nerves II through XII intact, 5/5 strength in all extremities. Intact sensation to light touch in all extremities, 2+ reflexes bilateral patella dens. Normal gait. No ataxia. Skin: No rash or lesions noted Const Vital Signs: 01/28/22 05:11 Temperature 98.0 F Temperature Source Temporal Pulse Rate 66 Respiratory Rate 18 Blood Pressure 107/66 Blood Pressure Mean 79 Pulse Ox 100 MDM MDM MDM Narrative Medical decision making narrative: 36-year-old female here with flank pain. Patient was hemodynamically stable, afebrile, nontoxic-appearing concern for nephrolithiasis, pyelonephritis, , UTI. I obtained a broad lab and imaging work-up to further elucidate etiology of patient complaints. Labs and images were remarkable for occult hematuria, inflammation in the urine. Clinical exam, history consistent with likely past nephrolithiasis. No evidence of CATHY. Patient did have mild hypokalemia this was replaced in the ED. She is able tolerate p.o. No indication for hospitalization or further testing at this time patient was appropriate for discharge home with close urology follow-up for further outpatient management of hematuria and acute on chronic urinary symptoms. Lab Data Attestation: I reviewed the patient's lab results. Lab results narrative: CBC without leukocytosis, severe anemia, no thrombocytopenia. BMP with mild hypokalemia, no anion gap, no acute kidney injury UA negative for infection, does show hematuria, does show inflammation likely secondary to passed kidney stone Labs: Laboratory Results - last 24 hr 01/28/22 01/28/22 01/28/22 05:25 05:25 05:26 WBC 7.3 RBC 4.28 Hgb 13.1 Hct 39.3 MCV 91.8 MCH 30.6 MCHC 33.3 RDW Std Deviation 43.2 RDW Coeff of Minnie 13.0 Plt Count 179 MPV 11.4 Immature Gran % (Auto) 0.300 Neut % (Auto) 40.4 L Lymph % (Auto) 50.3 H [place] % (Auto) 5.1 Eos % (Auto) 2.2 Baso % (Auto) 1.7 H Absolute Neuts (auto) 2.9 Absolute Lymphs (auto) 3.66 Nucleated RBC % 0 Sodium 140 Potassium 3.4 L Chloride 108 H Carbon Dioxide 24.0 Anion Gap 8 BUN 14 Creatinine 0.80 Estim Creat Clear Calc 77.63 Est GFR (MDRD) Af Amer 105 Est GFR (MDRD) Non-Af 87 BUN/Creatinine Ratio 17.5 Glucose 131 H Calcium 9.0 Total Bilirubin 0.60 Direct Bilirubin 0.14 AST 16 ALT 22 Alkaline Phosphatase 41 L Total Protein 7.4 Albumin 4.2 Globulin 3.2 Lipase 226 Urine Color Yellow Urine Clarity Clear Urine pH 6.0 Ur Specific [place] 1.025 Urine Protein 30 H Urine Glucose (UA) Normal Urine Ketones Negative Urine Occult Blood 250 H Urine Nitrite Negative Urine Bilirubin Negative Urine Urobilinogen Normal Ur Leukocyte Esterase 25 H Urine RBC 0-5 SEEN Urine WBC 10-25 SEEN Ur Squamous Epith Cells 0-5 SEEN Urine Bacteria 1+ Urine Mucus 1+ Urine Test Negative Treatment and Re-Evaluation Narrative: Tolerated p.o. is appropriate for discharge home. Discharge Plan Triage Chief Complaint: Flank Pain ED Provider: Jamey Syed Dx/Rx/DC Orders Clinical Impression: Renal colic, Hematuria, Acute hypokalemia Instructions: Hypokalemia Dc, ED Flank Pain, Uncertain Cause Prescriptions: New ondansetron 4 mg tablet,disintegrating 4 mg PO Q8H PRN (Reason: nausea and vomiting) Qty: 10 0RF Stand Alone Forms: ED Work / School Excuse Primary Care Provider: Care Physician,No Primary Referrals: Godwin Mayo MD [Med Staff - Active Staff] - Care Physician,No Primary [Primary Care Provider] - Disposition Disposition: Home, Self Care
[2022-01-28 06:09] LABS: Absolute Lymphocyte Count 3.66 X10^3/uL (0.83-4.51); Absolute Neutrophil Count 2.9 X10^3/uL (2.0-7.7); Basophil# 0.12 X10^3/uL; Basophil% 1.7 % (0-1); Eosinophil# 0.16 X10^3/uL; Eosinophils% 2.2 % (0-5); Hematocrit 39.3 % (37-47); Hemoglobin 13.1 g/dL (12.0-15.0); Lymphocyte # 3.66 X10^3/ul (0.83-4.51); Lymphocyte % 50.3 % (19-41); Mean Corp Hgb Conc 33.3 g/dL (32-36); Mean Corpuscular Hgb 30.6 pg (27.0-32.0); Mean Corpuscular Volume 91.8 fL (81-99); Mean Platelet Vol. 11.4 fl (6.2-12.0); Monocyte# 0.37 X10^3/uL; Monocyte% 5.1 % (0-10); NRBC Flagged by Analyzer 0 % (0-5); Neutrophil # 2.94 X10^3/uL (2.7-7.7); Neutrophil % 40.4 % (47-70); Platelet Count 179 K/mm3 (150-450); RBC Distribution Width SD 43.2 fl (35.1-43.9); Red Blood Count 4.28 M/mm3 (4.2-5.4); White Blood Count 7.3 K/mm3 (4.4-11.0)
[2022-01-28 06:13] LABS: Color, Urine Yellow (Yellow); Glucose, Dipstick Normal (Normal); Ketone-Dipstick Negative (Negative); Leukocyte Esterase-Dipstick 25 /ul (Negative); Nitrite-Dipstick Negative (Negative); Occult Blood-Urine 250 /ul (Negative); Protein-Dipstick 30 mg/dl (Negative); Specific Gravity, Urine 1.025 (1.002-1.030); Urine Bilirubin Dipstick Negative (Negative); Urine Clarity Clear (Clear); Urine Urobilinogen Normal (Normal)
[2022-01-28] MEDS: 0.9% Normal Saline 1,000 ML 1000 ML IV (06:14)
[2022-01-28] MEDS: Ondansetron 4 MG/2 ML Vial IV (06:14)
[2022-01-28 06:15] LABS: Internal QC Validated? YES +Cl - CLEAR BKGD; Pregnancy, Urine Negative Negative
[2022-01-28 06:25] LABS: AST(SGOT) 16 U/L (15-37); Alanine Aminotransfer ALT/SGPT 22 U/L (13-56); Albumin, Serum 4.2 g/dL (3.2-5.0); Alkaline Phosphatase 41 U/L (45-117); Anion Gap 8 (5-15); BUN 14 mg/dL (7-18); BUN/Creat Ratio 17.5 RATIO (10-20); Bilirubin, Direct 0.14 mg/dL (0.00-0.30); Chloride 108 mmol/L (98-107); EST Glomerular Filtration Rate 87 mL/min (>60); Est Glom Filt Rate - Afr Amer 105 mL/min (>60); Estimated Creatinine Clearance 77.63 ml/min; Globulin 3.2 g/dL (2.2-4.2); Glucose 131 mg/dL (74-106); Lipase 226 U/L (73-393); Potassium 3.4 mmol/L (3.5-5.1); Protein, Total 7.4 g/dL (6.4-8.2); Sodium Level 140 mmol/L (136-145)
[2022-01-28 06:35] LABS: Bacteria 1+ /hpf (None Seen); Mucous, Urine 1+ /hpf (<or=2+); Red Blood Cells-Urine 0-5 SEEN /hpf (0-5); Squamous Epithelial Cells - UA 0-5 SEEN /hpf (5-10); White Blood Cells 10-25 SEEN /hpf (0-5)
[2022-01-28] MEDS: Potassium Chloride Oral Tablet 20 MEQ 40 MEQ PO (06:37)
[2022-01-28 07:26] VITALS: BP 108/67; PULSE 71; RESP 16; O2SAT 100
== END 2022-01-28 07:28 | disposition home or self-care (01) ==
PROVIDERS: Emergency Provider Emergency Medicine; Visit Provider Emergency Medicine
DX: E87.6 Hypokalemia (principal); R11.2 Nausea with vomiting, unspecified; Z87.442 Personal history of urinary calculi; R10.9 Unspecified abdominal pain; N23 Unspecified renal colic; R31.9 Hematuria, unspecified
CPT/HCPCS: 80048; 80076; 81001; 81025; 83690; 85025; 96361; 96374; 99283; J7030; J2405

== ENCOUNTER → 2023-11-23 | Outpatient (CLI) | payer OTHER, SELFPAY ==
--- OUTSIDE RECORDS SUMMARY | 2023-11-23 14:22 | XMS RPT_ITS | CCD ---
Author Organization [facility] Care Team Providers Care Account Services Associate Name Role Phone DENISE LOPEZ Unavailable Unavailable Meek Connolly III Primary Care Provider MohsenMeek castorena III Primary Care Provider Podlogar CAR LOT ATTENDANT.Christa ARCOS Primary Care Provider MEEK CONNOLLY III Primary Care Unavail able REINIER JIM Attending Unavailable REINIER JIM Attending Unavailable MEEK CONNOLLY III Primary Care Unavail able KENDRA LUTZ Attending Unavailable MOHSEN III, MEEK MASSEY Primary Care Unavail able KENDRA LUTZ Attending Unavailable SELF Referring Unavailable MEEK CONNOLLY III SHILPA Primary Care Unavail able Medications Current Medications Medication Drug Class(es) Dates Sig (Normalized) Sig (Original) escitalopram 20 mg oral tablet (8 sources) Serotonin Reuptake Inhibitor Start: 07-17-2023 End: 12-17-2023 take 1 tablet by mouth once daily escitalopram oxalate (LEXAPRO) 20 mg tablet Take 1 tablet by mouth once daily. 30 tablet 2 09/18/2023 12/17/2023 Active Start: 07-02-2023 End: 07-17-2023 take 1 tablet by mouth once daily escitalopram oxalate (LEXAPRO) 10 mg tablet Take 1 tablet by mouth once daily. 30 tablet 1 07/02/2023 07/17/2023 Discontinued Start: 04-24-2023 End: 06-30-2023 take 1 tablet by mouth once daily escitalopram oxalate (LEXAPRO) 10 mg tablet Take 1 tablet by mouth once daily. 30 tablet 1 04/24/2023 06/30/2023 Discontinued Comment on above: Take 1 tablet by rahul once daily. Completed/Discontinued Medications Medication Drug Class(es) Dates Sig (Normalized) Sig (Original) carboxymethylcellulose sodium 5 mg/ml / glycerin 10 mg/ml / polysorbate 80 5 mg/ml ophthalmic solution (3 sources) Non-Standardized Chemical Allergen End: 4 carboxymethyl-gl [id number]-VN (REFRESH OPTIVE ADVANCED, PF,) 0.5-1-0.5 % dpet Use 1 Drop in eyes three times daily. 0 07/17/2023 Discontinued (Course of therapy completed) Comment on above: Use 1 Drop in eyes t hree times daily. cephalexin 500 mg oral capsule (3 sources) Cephalosporin Antibacterial Start: 4 End: 4 cephALEXin (KEFLEX) 500 mg capsule OTC NUTRITIONAL SUPPLEMENT (3 sources) End: 4 OTC NUTRITIONAL SUPPLEMENT Fish/Flax Oil capsule, Pt takes 3 daily as needed. 0 07/17/2023 Discontinued (Course of therapy completed) OTC NUTRITIONAL SUPPLEMENT Fish/Flax Oil capsule, Pt takes 3 daily as needed. 0 Active Comment on above: Fish/Flax Oil capsul e, Pt takes 3 daily as needed. multivitamin ( VITAMIN WITH MINERALS) 28 mg iron- 800 mcg tab (3 sources) Start: 7 End: 4 take 1 tablet by mouth once daily multivitamin ( VITAMIN WITH MINERALS) 28 mg iron- 800 mcg tab Take 1 tablet by mouth once daily. 30 tablet 12 03/10/2016 07/17/2023 Discontinued (Course of therapy completed) Start: 03-10-2016 take 1 tablet by rahul th once daily multivitamin ( VITAMIN WITH MINERALS) 28 mg iron- 800 mcg tab Take 1 tablet by mouth once daily. 30 tablet 03/10/2016 Active Comment on above: Take 1 tablet by rahul th once daily. Problems Active Problems Problem Classification Problem Date Documented Da te Episodic/Chronic Anxiety disorders (7 sources) Anxiety; Translations: [Anxiety disorder, unspecified] Onset: 06-09-2023 06-09-2023 Chronic Other aftercare (2 sources) Patient encounter status; Translations: [Other long distance operator (current) drug therapy] 07-17-2023 Episodic Other aftercare (1 source) Long-term current use of drug therapy; Translations: [Other fpc (current) drug therapy] 11-19-2023 Episodic Unclassified (1 source) New Patient Evaluation Onset: 07-17-2023 Past or Other Problems Problem Classification Problem Date Documented Date Episodic/Chronic Calculus of urinary tract (4 sources) History of calculus of kidney; Translations: [Personal history of urinary calculi] Onset: 04-12-2018 Resolved: 01-09-2019 01-09-2019 Episodic Inflammation; infection of eye (except that caused by tuberculosis or sexually transmitteddisease) (4 sources) Bilateral punctate keratitis of eyes; Translations: [Punctate keratitis, bilateral] Onset: 02-16-2017 Resolved: 08-07-2018 08-07-2018 Chronic Malaise and fatigue (5 sources) Malaise and fatigue; Translations: [Other malaise] Onset: 07-17-2023 07-17-2023 Episodic Other eye disorders (4 sources) Degenerative progressive high myopia; Translations: [Degenerative myopia, unspecified eye] Onset: 10-21-2013 Resolved: 06-28-2016 06-28-2016 Chronic Other eye disorders (4 sources) Vitreous opacities; Translations: [Other vitreous opacities, unspecified eye] Onset: 02-14-2014 Resolved: 06-28-2016 06-28-2016 Chronic Other eye disorders (4 sources) Bilateral vitreous floaters; Translations: [Other vitreous opacities, bilateral] Onset: 01-28-2015 Resolved: 06-28-2016 06-28-2016 Chronic Other female genital disorders (2 sources) Other specified noninflammatory disorders of vagina; Translations: [Other specified noninflammatory disorders of vagina] Onset: 01-12-2017 Episodic Other and delivery including normal (4 sources) Normal ; Translations: [Encounter for supervision of other normal , first trimester] Onset: 01-16-2014 Resolved: 01-09-2019 01-09-2019 Episodic Other skin disorders (4 sources) Acne; Translations: [Acne, unspecified] Onset: 08-07-2013 Resolved: 01-16-2014 01-16-2014 Episodic Residual codes; unclassified (8 sources) FH: Chromosomal anomaly; Translations: [Family history of other congenital malformations, deformations and chromosomal abnormalities] Onset: 01-16-2014 Resolved: 05-31-2016 04-12-2018 Episodic Residual codes; unclassified (4 sources) History of photorefractive keratectomy; Translations: [Other specified postprocedural states] Onset: 03-08-2016 Resolved: 06-28-2016 06-28-2016 Episodic Unclassified (4 sources) heart echogenicity on obstetric ultrasound scan; Translations: [ cardiac echogenic focus] Onset: 07-10-2018 Resolved: 01-09-2019 01-09-2019 Results Test Name Value Interpretation Reference Range Facility [facility] 11-17-2023 CNPN Telephone (PSWSTR) ----- JEREMIAHPAIGEXIOMARA KAPLAN ([id number]) 1985 F Date Time Provider Department 11/17/23 REINIER JIM PSWSTR During your visit today, we recorded the following information about you: Kristin Rodriguez LPN 11/17/2023 3:26 PM Signed Patient calling asking to have lab orders faxed to [phone]. She is getting set up with [facility] with Luana Baer. Lab orders have in computer. Pending orders needs diagnosis. Please advise Reinier Jim APRN.[facility] 11/19/2023 10:04 AM Signed Lab orders have been updated. Please fax them as requested by the patient. Bee Simon MA 11/20/2023 8:18 AM Signed Labs faxed and patient was notified Bee Simon MA Allergies As of Date: 11/17/2023 (No Known Allergies) Date Reviewed: 07/17/2023 Reviewed by: Augusta Franco LPN - Fully Assessed Reason for Visit: need new lab orders [Other] Primary Visit Diagnosis:Encounter for long-term (current) use of medications [Z79.899] Order(s):THYROID STIMULATING HORMONE [SQTSH] Order #: [id number] FUTURE COMPLETE BLOOD COUNT AND DIFFERENTIAL [SQCBCDIF] Order #: [id number] FUTURE LIPID PANEL BASIC [SQLIPB] Order #: [id number] FUTURE COMPREHENSIVE METABOLIC PANEL [SQCMP] Order #: [id number] FUTURE Prescriptions as of 11/20/2023 - escitalopram oxalate (LEXAPRO) 20 mg tablet Take 1 tablet by mouth once daily. Problem List As Of Date 11/17/2023 Noted Resolved Acne [L70.9] 08/07/2013 01/16/2014 S/P LASIK surgery of both eyes - Both Eyes [Z98*10/21/2013 03/08/2016 Progressive high (degenerative) myopia - Both E*10/21/2013 06/28/2016 Encounter for supervision of other normal pregn*01/16/2014 01/09/2019 Family history of Down syndrome [Z82.79] 01/16/2014 03/10/2016 Other vitreous opacities - Both Eyes [H43.399] 02/14/2014 06/28/2016 Vitreous floaters of both eyes [H43.393] 01/28/2015 06/28/2016 S/P ASA (advanced surface ablation) surgery PRK*03/08/2016 06/28/2016 Family history of Down syndrome [Z82.79] 03/10/2016 05/31/2016 Punctate keratitis, bilateral [H16.143] 02/16/2017 08/07/2018 History of kidney stones [Z87.442] 04/12/2018 01/09/2019 cardiac echogenic focus [[id number]] 07/10/2018 01/09/2019 Generalized anxiety disorder [F41.1] 07/17/2023 Malaise and fatigue [R53.81, R53.83] 07/17/2023 Encounter Status:Closed by REINIER JIM on 11/19/23 Normal [facility] CNOVon 06-09-2023 CNOV Office Visit (OBGYWM ) ----- XIOMARA BENITES ([id number]) 1985 F Date Time Provider Department 06/09/23 10:30 AM KENDRA LUTZ OBGYWAmanda During your visit today, we recorded the following information about you: Blood pressure Weight 108/62 52.4 kg Kendra Lutz APRN.CNM 06/09/2023 4:35 PM Signed Xiomara Benites is a 37 year old female who presents for follow up visit. She started taking Lexapro 20 mg PO daily for anxiety around 4 weeks ago. Does not notice any difference in anxiety levels. Denies having any negative side effects from the medicine but continues to have increasing anxiety. OB History T3 L3 SAB0 IAB0 Ectopic0 Multiple0 Live Births3 Promotions Director History LMP: 04/07/2023 (Approximate), Unknown Age at Menarche: Age at First : Age at Menopause: Promotions Director History Comments: Sexual Activity: Not Asked; Male; Patient not asked at this visit. 02/16/2017 Contraception: No contraception data on record REVIEW OF SYSTEMS Abdomen: No bloating, early satiety, indigestion, or increased flatulence. No abdominal pain, nausea, vomiting, diarrhea, or constipation. Bladder: No dysuria, gross hematuria, urinary frequency, urinary urgency, or incontinence. Breast: No breast lumps, nipple d/c, overlying skin changes, redness or skin retraction. Expanded ROS: N/A Allergies and current medication updated:Yes EXAM: BP 108/62 Wt 115 lb 9.6 oz (52.4kg) LMP 04/07/2023 GENERAL: pleasant, female in mild distress HEENT: Normocephalic and atraumatic NECK: Supple DERMATOLOGY: Normal and without lesions BREAST: deferred CHEST: Normal inspiratory effort ASSESSMENT/PLAN: 1. Anxiety - ICD9: 300.00, ICD10: F41.9 - YARI score - 13 - Continue Lexapro 20 mg PO daily. Discussed that medication can sometimes take time to work at full potential - Referral for psychology for evaluation and medication management - Patient agrees with plan of care - RTO 3 months for follow up Kendra Lutz APRN.CNM Allergies As of Date: 06/09/2023 (No Known Allergies) Date Reviewed: 06/09/2023 Reviewed by: Luis Colon MA - Fully Assessed Reason for Visit: Follow Up [171] Cmt: Lexapro Primary Visit Diagnosis:Anxiety [F41.9] Prescriptions as of 06/09/2023 - cephALEXin (KEFLEX) 500 mg capsule - escitalopram oxalate (LEXAPRO) 10 mg tablet Take 1 tablet by mouth once daily. - multivitamin ( VITAMIN WITH MINERALS) 28 mg iron- 800 mcg tab Take 1 tablet by mouth once daily. - OTC NUTRITIONAL SUPPLEMENT Fish/Flax Oil capsule, Pt takes 3 daily as needed. - lhtqrfgtnpjih-jzx-[id number]- PF (REFRESH OPTIVE ADVANCED, PF,) 0.5-1-0.5 % dpet Use 1 Drop in eyes three times daily. Problem List As Of Date 06/09/2023 Noted Resolved Acne [L70.9] 08/07/2013 01/16/2014 S/P LASIK surgery of both eyes - Both Eyes [Z98*10/21/2013 03/08/2016 Progressive high (degenerative) myopia - Both E*10/21/2013 06/28/2016 Encounter for supervision of other normal pregn*01/16/2014 01/09/2019 Family history of Down syndrome [Z82.79] 01/16/2014 03/10/2016 Other vitreous opacities - Both Eyes [H43.399] 02/14/2014 06/28/2016 Vitreous floaters of both eyes [H43.393] 01/28/2015 06/28/2016 S/P ASA (advanced surface ablation) surgery PRK*03/08/2016 06/28/2016 Family history of Down syndrome [Z82.79] 03/10/2016 05/31/2016 Punctate keratitis, bilateral [H16.143] 02/16/2017 08/07/2018 History of kidney stones [Z87.442] 04/12/2018 01/09/2019 cardiac echogenic focus [[id number]] 07/10/2018 01/09/2019 Disposition: Return in about 3 months (around 09/08/2023). Follow-up and Disposition History for Encounter Date Provider Department Center 06/09/2023 [id number] LUTZ Encounter Status:Closed by KENDRA LUTZ on 06/09/23 Normal [facility] CNOVon 04-24-2023 CNOV Office Visit (JAKOB ) ----- SANDHYADAPHNEXIOMARA KAPLAN ([id number]) 1985 F Date Time Provider Department 04/24/23 2:00 PM KENDRA LUTZ OBGYWM During your visit today, we recorded the following information about you: Blood pressure Weight Height Last Period 100/58 51.3 kg 1.588 m 04/07/23 Kendra Lutz APRN.CNM 04/24/2023 4:16 PM Signed Xiomara is a 37 year old who presents for an annual gynecologic exam with complaints of continued increasing anxiety. Stated has always had anxiety but continues to worsen. Positive for panic attacks. Nothing specific triggering just general anxiety and is tired of feeling so anxious. Menses: cycles every 25 days and 5 days of flow. Contraception: none HPV vaccine: No Last Pap: 03/16/2016 normal HPV: N/A History of abnormal pap: No Last mammogram: never Sexually active: Yes History of STDS: None Pain with intercourse: No Postcoital bleeding: No Hot flashes: No Night sweats: No Vaginal dryness: No OB History T3 L3 SAB0 IAB0 Ectopic0 Multiple0 Live Births3 Promotions Director History LMP: 02/23/2018 (Approximate), Unknown Age at Menarche: Age at First : Age at Menopause: Promotions Director History Comments: Sexual Activity: Not Asked; Male; Patient not asked at this visit. 02/16/2017 Contraception: No contraception data on record PAST MEDICAL HISTORY Diagnosis Date kidney stone PAST SURGICAL HISTORY Procedure Laterality Date ADVANCE SURFACE ABLATION LASEK PRK 2014 both eyes UNSPECIFIED ORAL SURGERY PROCEDURE, BY REPORT [id number] Ravin olsen FAMILY HISTORY Problem Relation Age of Onset Cancer Mother thyroid Breast Cancer Mother No Known Problems Father other (mesothelioma) Paternal Grandfather Cancer Maternal Grandfather Carcinoid No Known Problems Paternal Grandmother No Known Problems Maternal Grandmother No Known Problems Sister No Known Problems Brother SOCIAL HISTORY Social History Tobacco Use Smoking status: Never Smokeless tobacco: Never Substance Use Topics Alcohol use: Yes Comment: Not while Drug use: No REVIEW OF SYSTEMS Abdomen: No abdominal pain, nausea, vomiting, diarrhea, or constipation. No bloating, early satiety, indigestion, or increased flatulence. Bladder: No dysuria, gross hematuria, urinary frequency, urinary urgency, or incontinence. Breast: No breast lumps, nipple d/c, overlying skin changes, redness or skin retraction. Allergies and current medication updated:Yes EXAM: BP 100/58 Ht 5' 2.5 (1.59m) Wt 113 lb (51.3kg) LMP 04/07/2023 BMI 20.33 kg/(m2). GENERAL: pleasant, female in mild distress HEENT: Normocephalic NECK: Supple and full range of motion DERMATOLOGY: Normal and without lesions BREAST: soft, non-tender, symmetric, no dominant mass, normal nipple-areolar complex, no lymphadenopathy, and no nipple discharge CHEST: Normal inspiratory effort ABDOMEN: soft, non-tender, and no masses PELVIC: external genitalia normal, normal Bartholin's glands, urethra, [place]'s glands, no vulvar lesions, no cervical lesions, good vaginal support, physiologic discharge present, normal appearing perineal body and perianal region BIMANUAL: uterus normal size, shape and consistency, no adnexal masses, non-tender, and no cervical motion tenderness RECTOVAGINAL: deferred. NEURO: alert and oriented x3,exam grossly non-focal EXTREMITIES: normal ASSESSMENT/PLAN: 1) Health maintenance: Pap done with reflex HPV. Nutrition, exercise and routine health maintenance exams reviewed. 2) Contraception: none. Would be accepting of - recommended vitamin 3) STD screening: Declined STD check. 4) Lexapro 10 mg PO daily x 1 week then increase to Lexapro 20 mg PO daily. Reviewed R/B/A to medications and s/s to report May opt for counseling in future Kendra Lutz APRN.CNM Referring Provider: SELF [200] Allergies As of Date: 04/24/2023 (No Known Allergies) Date Reviewed: 04/24/2023 Reviewed by: Kendra Lutz APRN.CNM - Fully Assessed Reason for Visit: Well Woman [1463] Primary Visit Diagnosis:Encounter for gynecological examination (general) (routine) without abnormal findings [Z01.419] Other Visit Diagnoses:Screening for cervical cancer [Z12.4] Encounter for screening for human papillomavirus (HPV) [Z11.51] Anxiety [F41.9] Order(s):PAP TEST [[id number]] Order #: [id number]. #:[id number] escitalopram oxalate (LEXAPRO) 10 mg tabletTake 1 tablet by mouth once daily.Disp: 30 tabletRfl: 1 Prescriptions as of 04/24/2023 - cephALEXin (KEFLEX) 500 mg capsule - escitalopram oxalate (LEXAPRO) 10 mg tablet Take 1 tablet by mouth once daily. - multivitamin ( VITAMIN WITH MINERALS) 28 mg iron- 800 mcg tab Take 1 tablet by mouth once daily. - OTC NUTRITIONAL SUPPLEMENT Fish/Flax Oil capsule, Pt takes (more content not included)... Normal [facility] HPV W/GENOTYPE THIN PREPon 0 04-24-2023 HPV 16 Ag Ql (Unsp spec) Negative Normal Negative for HPV DNA high risk type 16 by PCR [facility] Comment on above: Order Comment: Specimen Type: FLUID SPEC IMEN Ordering Facility: [facility] Address: [address] [place] [address] Performed By: #### L [id number] #### [facility] CLIA [id number] [address] [place] [address] LAB CLIA [id number] [address] [place] [address] [place] #### HPVHRT #### [facility] CLIA [id number] [address] [place] [address] [place] HPV 18 Ag Ql (Unsp spec) Negative Normal Negative for HPV DNA high risk type 18 by PCR [facility] Comment on above: Order Comment: Specimen Type: FLUID SPEC IMEN Ordering Facility: [facility] Address: [address] [place] [address] Performed By: #### L [id number] #### [facility] CLIA [id number] [place] [address] STATES OF [facility] CLIA [id number] [address] [place] [address] [place] #### HPVHRT #### [facility] CLIA [id number] [facility] [place] [address] [place] HPV 31+33+35+39+45+5 1+52+56+58+59+66 +68 DNA ADI+probe Ql (Cvx) Negative for HPV DNA high risk types: 31,33,35,39,45,51,52,56,5 8,59,66,68 by PCR. Normal Negative for HPV DNA high risk types: 31,33,35,39,45 ,51,52,56,58,5 9,66,68 by PCR. [facility] Comment on above: Order Comment: Specimen Type: FLUID SPEC IMEN Ordering Facility: [facility] Address: [address] [place] [address] Performed By: #### L [id number] #### [facility] CLIA [id number] [address] [place] [address] [place] [facility] CLIA [id number] [address] [place] [address] [place] #### HPVHRT #### [facility] CLIA [id number] [address] [place] [address] [place] PAP TESTon 04-24-2023 ADEQUACY Satisfactory for interpretation Normal [facility] Comment on above: Order Comment: Specimen Type: FLUID SPEC IMEN Ordering Facility: [facility] Address: [address] [place] [address] Performed By: #### L [id number] #### [facility] CLIA [id number] [place] [address] [place] [facility] CLIA [id number] [address] [place] [address] [place] #### HPVHRT #### [facility] CLIA [id number] [address] [place] [address] [place] CASE REPORT Normal [facility] Comment on above: Order Comment: Specimen Type: FLUID SPEC IMEN Ordering Facility: [facility] Address: [address] [place] [address] Result Comment: Gyne cologic Cytology Report Case: [id number] Authorizing Provider: Kendra Lutz APRN.CNM Collected: 04/24/2023 02:54 PM Ordering Location: OB/Gynecology Received: 04/24/2023 04:52 PM First Screen: Chasidy Mauricio, CT, ASCP Specimen: Pap Test, ThinPrep, Cervix Performed By: #### L [id number] #### [facility] CLIA [id number] [address] [place] [address] [place] [facility] CLIA [id number] [address] [place] [address] [place] #### HPVHRT #### [facility] CLIA [id number] [address] [place], [place] [id number] [place] CLINICAL HISTORY, CYTOLOGY, MATHEMATICS TECHNICIAN Routine Exam Normal [facility] Comment on above: Order Comment: Specimen Type: FLUID SPEC IMEN Ordering Facility: [facility] Address: [address] [place] [address] Performed By: #### L [id number] #### [facility] CLIA [id number] [address] [place] [address] [place] [facility] CLIA [id number] [address] [place] [address] [place] #### HPVHRT #### [facility] CLIA [id number] [address] [place], [place] [id number] [place] FINAL PERFORMING LAB Normal [facility] Comment on above: Order Comment: Specimen Type: FLUID SPEC IMEN Ordering Facility: [facility] Address: [address] [place], [place] [id number] Result Comment: Tech nical component, market gardener screening performed at [facility], [address] [place] [address] CLIA# [id number] Diagnostic interpretation performed at [facility], [address] [place] [address] CLIA# [id number] [employer] Assistant Manager: Emile Mahmood M.D. Performed By: #### L [id number] #### [facility] CLIA [id number] [address] [place] [id number] [place] [facility] CLIA [id number] [address] [place] [address] [place] #### HPVHRT #### [facility] CLIA [id number] [address] [place] [address] [place] HPV REFLEX Yes HPV Normal [facility] Comment on above: Order Comment: Specimen Type: FLUID SPEC IMEN Ordering Facility: [facility] Address: [address] [place] [address] Performed By: #### L [id number] #### [facility] CLIA [id number] [address] [place] [address] [place] [facility] CLIA [id number] [address] [place] [address] [place] #### HPVHRT #### [facility] CLIA [id number] [address] [place] [address] [place] INTERPRETATION, CYTOLOGY, MATHEMATICS TECHNICIAN Normal [facility] Comment on above: Order Comment: Specimen Type: FLUID SPEC IMEN Ordering Facility: [facility] Address: [address] [place] [address] Result Comment: Nega tive for intraepithelial lesion or malignancy. Performed By: #### L [id number] #### [facility] CLIA [id number] [address] [place] [address] [place] [facility] CLIA [id number] [address] [place] [address] [place] #### HPVHRT #### [facility] CLIA [id number] [address] [place] [address] [place] LMP 04/07/2023 Normal [facility] Comment on above: Order Comment: Specimen Type: FLUID SPEC IMEN Ordering Facility: [facility] Address: [address] [place] [address] Performed By: #### L [id number] #### [facility] CLIA [id number] [address] [place] [address] [place] [facility] CLIA [id number] [address] [place] [address] [place] #### HPVHRT #### [facility] CLIA [id number] [address] [place] [address] [place] PAP DISCLAIMER COMMENT The Pap Smear is a screening test for cervical cancer. False negative results occur with all screening tests, emphasizing the need for rescreening at recommended intervals, and clinical correlation. Normal [facility] Comment on above: Order Comment: Specimen Type: FLUID SPEC IMEN Ordering Facility: [facility] Address: [address] [place] [address] Performed By: #### L [id number] #### [facility] CLIA [id number] [address] [place] [address] [place] [facility] CLIA [id number] [address] [place] [address] [place] #### HPVHRT #### [facility] CLIA [id number] [address] [place] [address] [place] PAP MANUAL LATHE OPERATOR COMMENT This specimen has been analyzed by the ThinPrep Imaging System, an automated imaging and review system, which assists the laboratory in evaluating cells on ThinPrep Pap tests. Following automated imaging, selected coleman from every slide are reviewed by a market gardener. Normal [facility] Comment on above: Order Comment: Specimen Type: FLUID SPEC IMEN Ordering Facility: [facility] Address: [address] [place] [address] Performed By: #### L [id number] #### [facility] CLIA [id number] [address] [place] [address] [place] [facility] CLIA [id number] [address] [place] [address] [place] #### HPVHRT #### [facility] CLIA [id number] [address] [place] [address] [place] VAGDNAon 01-13-2017 VAGDNA . MICRO - MicrobiologyPROCEDURE: Affirm Pathogens DNA Direct Probe [*1]SOURCE: Vaginal Fluid BODY SITE: VaginaCOLLECTED DATE/TIME: 01/12/2017 14:24 EST RECEIVED DATE/TIME: 01/12/2017 20:23 ESTSTART DATE/TIME: 01/12/2017 20:25 EST FREE TEXT SOURCE:FINAL REPORTSFinal Report []Verified Date/Time/Personnel: 01/13/2017 12:25 ESTTrichomonas vaginalis DNA Probe NegativeCandida species DNA Probe NegativeGardnerella vaginalis DNA Probe PositivePerforming Locations*1: This test was performed at: [facility], [address] [place] [address], [facility] , [facility] ([place] Comment on above: Performed By: #### AFFIRM ####[facility] [place] [address] Vital Signs Date Time Vital Sign Value Performing Clinician Bryani michelle 06-09-2023 10:35-0400 Body weight 52.44 kg Kendra Lutz APRN.BEKAHM Work Phone: [facility] 06-09-2023 10:35-0400 Diastolic blood pressure 62 mm[Hg] Kendra Lutz CAR LOT ATTENDANT.CNM Work Phone: [facility] 06-09-2023 10:35-0400 Systolic blood pressure 108 mm[Hg] Kendra Lutz APRN.CNM Work Phone: [facility] Encounters Encounter Date Encounter Type Care Provider Facility Start: 11-17-2023 End: 11-19-2023 Telephone encounter Reinier Jim APRN.CNP Work Phone: Psychiatry Comment on above: need new lab orders Start: 09-18-2023 End: 09-18-2023 [facility] Reinier Jim APRN.CNP Work Phone: Psychiatry Comment on above: Encounter for long-t erm (current) use of medications (Primary Dx); Generalized anxiety disorder; Malaise and fatigue Start: 07-17-2023 End: 07-17-2023 [facility] Reinier Jim APRN.CNP Work Phone: Psychiatry Comment on above: Malaise and fatigue (Primary Dx); Generalized anxiety disorder; Encounter for long-term (current) use of medications Start: 06-30-2023 Refill Kendra garcia APRN.CNM Work Phone: OB/Gynecology Comment on above: Refill Request Start: 06-09-2023 End: 06-09-2023 [facility] Start: 06-09-2023 End: 06-09-2023 Patient encounter procedure Kendra Lutz APRN.CNM Work Phone: OB/Gynecology Comment on above: Anxiety (Primary Dx) Start: 04-24-2023 End: 04-24-2023 [facility] Start: 01-12-2017 End: 01-17-2017 Ambulatory [facility] Facility:[facility] Procedures Date Procedure Procedure Detail Performing Clinician Start: 10-21-2013 End: 03-08-2016 History of laser assisted in situ keratomileusis S/P LASIK surgery of both eyes - Both Eyes Kendra Lutz APRN.CNM Work Phone: Plan of Treatment Date Care Activity Detail Author Start: 09-04-2028 Urine microalbumin profile DTaP,Tdap,Td Vaccine (6 - Td or Tdap) [facility] Start: 04-24-2028 Screening for malign ant neoplasm of cervix [facility] Start: 04-29-2024 End: 04-29-2024 Patient encounter procedure 04/29/2024 10:45 AM EST Office Visit OB/Gynecology [address] [place] [address] Kendra Lutz APRN.[facility] [address] [place] [address] ANNUAL OB/Gynecology Comment on above: ANNUAL Start: 03-20-2024 End: 03-20-2024 Patient encounter procedure 03/20/2024 10:20 AM EST Office Visit [facility] [address] [place] [address] Christa Wilkinson APRN.[employer] [address] [place] [address] est care [facility] Comment on above: est care Start: 11-23-2023 End: 11-23-2023 Follow-up encounter 11/23/2023 10:30 AM EDT [facility] [address] [place] [address] Reinier Jim, CAR LOT ATTENDANT.[employer]O [employer]ULER [address] [place] [address] follow up 2 months Psychiatry Comment on above: follow up 2 months Start: 11-20-2023 End: 11-20-2023 Follow-up encounter 11/20/2023 10:30 AM EDT [facility] [address] [place] [address] Reinier Jim, CAR LOT ATTENDANT.[employer] [address] [place] [address] follow up 2 months Psychiatry Comment on above: follow up 2 months Start: 11-19-2023 End: 02-18-2024 CBC W Auto Differential panel - Blood COMPLETE BLOOD COUNT AND DIFFERENTIAL Lab Routine Encounter for long-term (current) use of medications Expected: 11/19/2023, Expires: 02/18/2024 [facility] Comment on above: Expected: 11/19/2023 , Expires: 02/18/2024 Start: 11-19-2023 End: 02-18-2024 Comprehensive metabolic 2000 panel - Serum or Plasma COMPREHENSIVE METABOLIC PANEL Lab Routine Encounter for long-term (current) use of medications Expected: 11/19/2023, Expires: 02/18/2024 [facility] Comment on above: Expected: 11/19/2023 , Expires: 02/18/2024 Start: 11-19-2023 End: 02-18-2024 Lipid 1996 panel - Serum or Plasma LIPID PANEL BASIC Lab Routine Encounter for long-term (current) use of medications Expected: 11/19/2023, Expires: 02/18/2024 [facility] Comment on above: Expected: 11/19/2023 , Expires: 02/18/2024 Start: 11-19-2023 End: 02-18-2024 Thyrotropin [Units/volume] in Serum or Plasma THYROID STIMULATING HORMONE Lab Routine Encounter for long-term (current) use of medications Expected: 11/19/2023, Expires: 02/18/2024 [facility] Work Phone: Comment on above: Expected: 11/19/2023 , Expires: 02/18/2024 Start: 10-29-2023 Covid-19 Vaccine ( season) Covid-19 Vaccine () [facility] Start: 10-29-2023 Influenza vaccination Influenza Vacc ine (#1) [facility] Start: 09-18-2023 End: 09-18-2023 Follow-up encounter 09/18/2023 11:00 AM EDT [facility] [address] [place] [address] Reinier Jim, CAR LOT ATTENDANT.[employer]ULER [address] [place] [address] 2 MONTH FOLLOW UP Psychiatry Comment on above: 2 MONTH FOLLOW UP Start: 07-17-2023 End: 10-16-2023 CBC W Auto Differential panel - Blood COMPLETE BLOOD COUNT AND DIFFERENTIAL Lab Routine Malaise and fatigue Expected: 07/17/2023, Expires: 10/16/2023 [facility] Comment on above: Expected: 07/17/2023 , Expires: 10/16/2023 Start: 07-17-2023 End: 10-16-2023 Comprehensive metabolic 2000 panel - Serum or Plasma COMPREHENSIVE METABOLIC PANEL Lab Routine Encounter for long-term (current) use of medications Expected: 07/17/2023, Expires: 10/16/2023 [facility] Comment on above: Expected: 07/17/2023 , Expires: 10/16/2023 Start: 07-17-2023 End: 10-16-2023 Lipid 1996 panel - Serum or Plasma LIPID PANEL BASIC Lab Routine Encounter for long-term (current) use of medications Expected: 07/17/2023, Expires: 10/16/2023 [facility] Work Phone: Comment on above: Expected: 07/17/2023 , Expires: 10/16/2023 Start: 07-17-2023 End: 10-16-2023 Thyrotropin [Units/volume] in Serum or Plasma THYROID STIMULATING HORMONE Lab Routine Malaise and fatigue Generalized anxiety disorder Expected: 07/17/2023, Expires: 10/16/2023 [facility] Comment on above: Expected: 07/17/2023 , Expires: 10/16/2023 Start: 07-17-2023 End: 07-17-2023 FQ visit new patient 07/17/2023 11:00 AM EDT [facility] [address] [place] [address] Reinier Jim, CAR LOT ATTENDANT.[employer] [address] [place] [address] NEW PATIENT Psychiatry Comment on above: NEW PATIENT Start: 02-27-2023 Behavioral Health Screening Behavioral Health Screening [facility] Start: 10-28-2022 Covid-19 Vaccine () Covid-19 Vaccine () [facility] Start: 2005 Hepatitis B Vaccine (1 of 3 - 19+ 3-dose series) Hepatitis B Vaccine (1 of 3 - 19+ 3-dose series) [facility] Start: 2004 Depression Screening Depression Scre juan miguel [facility] Start: 2004 Hepatitis C screening Hepatitis C Sc shree [facility] Immunizations Immunization Date Immunization Notes Care Provider Johan amanda 01-16-2023 influenza virus vaccine, unspecified formulation Reinier Jim [employer] LOT ATTENDANT.AUT[employer]ULER Work Phone: [facility] 09-04-2018 tetanus toxoid, redu douglas diphtheria toxoid, and acellular pertussis vaccine, adsorbed Kendra Plotts [employer] LOT ATTENDANT.CNM Work Phone: [facility] Work Phone: 07-19-2016 tetanus toxoid, redu douglas diphtheria toxoid, and acellular pertussis vaccine, adsorbed Kendra Plotts [employer] LOT ATTENDANT.CNM Work Phone: [facility] 06-19-2014 tetanus toxoid, redu douglas diphtheria toxoid, and acellular pertussis vaccine, adsorbed Kendra Plotts [employer] LOT ATTENDANT.CNM Work Phone: [facility] Payers Date Payer Category Payer Private Health Insurance [facility] [employer] [id number] 2023-Present [phone] [address] [place] [address] O [id number] 2023 Unknown [id number] 2017 Unknown [id number] Social History Date Type Detail Facility Start: 04-24-2023 Tobacco smoking stat us NHIS Never smoked tobacco [facility] Start: 04-24-2023 Tobacco use and exposure Smoke less tobacco non-user [facility] Start: 06-09-2023 End: 07-17-2023 Alcohol intake Current drinker of alcohol (finding) [facility] Start: 04-24-2023 End: 06-09-2023 History of Social function [facility] Start: 04-24-2023 End: 06-09-2023 Tobacco use panel [facility] National Score (1-10 0), lower number is lower risk 43 [facility] Start: 01-16-2014 Alcohol Comment Not while [facility] Start: 1986 Sex Assigned At Not on file C [facility] Clinical Notes 07-10-2018 to 11-19-2023 Telephone Encounter - Reinier Jim APRN.CNP - 11/19/2023 10:03 AM EDTTelephone Encounter - Reinier Jim APRN.CNP - 11/19/2023 10:03 AM EDTRaReinier estrada APRN.CNP - 09/18/2023 11:06 AM EDT Note Date & Type Note Facility 11-19-2023 Telephone encounter Note Lab orders have been updated. Please fax them as requested by the patient. [facility] 11-19-2023 Miscellaneous Notes Lab orders have been updated. Please fax them as requested by the patient. Patient calling asking to have lab orders faxed to [phone]. She is getting set up with [facility] with K Mast. Lab orders have in computer. Pending orders needs diagnosis. Please advise documented in this encounter [facility] 11-17-2023 Telephone encounter Note Patient calling asking to have lab orders faxed to [phone]. She is getting set up with [facility] with K Mast. Lab orders have in computer. Pending orders needs diagnosis. Please advise [facility] 09-18-2023 Note HNO ID: [id number] Author: REINIER JIM APRN.AUTO HAULER Service: ? Author Type: Nurse Practitioner Type: Progress Notes Filed: 09/18/2023 12:39 Note Text: FOLLOW UP - PSYCHIATRIC PROGRESS NOTE PATIENT: Xoimara Benites DATE: September 18, 2023 Visit Type: Virtual Visit utilizing two-way audio and video for at least a portion of the visit. Consent for virtual visit obtained verbally. Confidentiality limitations with virtual visits reviewed with the patient and guardian, if present, who have accepted the risk verbally prior to proceeding with encounter. I have communicated my name and active licensure. The patient's identity and physical location were verified at the time of this visit. Either the patient or their legal retail service representative has been informed of the risks and benefits of -- and alternatives to -- treatment through a remote evaluation and consents to proceed with the evaluation remotely. All information is from Patient report except when noted. This evaluation is NOT intended for forensic, disability or child custody purposes. Some elements were copied from the previous note which have been updated where appropriate and reflect current decision making from today September 18, 2023. CC: Presenting today for follow up regarding psychiatric medication management. HPI: Treatment Plan from Last Visit on 07/17/2023: Increase Lexapro to 20 mg to address anxiety symptoms. Monitor for side effects. Patient aware to reach out sooner with concerns. Consider switching Lexapro to Prozac if patient experiences side effects or experiences lack of benefits at the higher dose. Mom has been treated with Prozac and reported improvement. Complete monitoring lab work to rule out medical reasons for fatigue and anxiety symptoms. Also monitoring for any metabolic side effects. Patient has not been seen by primary care provider for a physical yearly and no lab work available for review in the past year. Today Xiomara shares that the increase in Lexapro has helped manage her anxiety symptoms better. It is helping some . She shares that she noticed that the medication has made her not able to cry easily. Grandmother and she was not able to cry but that did not bother her. Has been able to process the loss well though. With the increase in Lexapro, she feels that her overall feelings of anxiety have improved. I don't panic as much as I used to which is nice . Worries more about things at hand. Such as getting ready to go somewhere right now . Worries about things being done correctly but has a hard time speaking up. Shares that she struggles with anticipatory anxiety. Dreads going to places but then enjoys it when she is there. I am always tired but I have always been tired and I have not noticed that the medicine increase has made it worse . She sleeps 8 to 9 hours at night. Shares that her PCP retired 2 years ago. Needs to establish with a new primary care provider. Will complete lab work as she forgot about it. Interval Progress: Slightly improved PATIENT DATA: Generalized Anxiety Disorder Scale (YARI-7) 07/17/2023 09/18/2023 YARI - 7 SCORES Score 8 6 (0-4) minimal anxiety, (5-9) mild anxiety, (10-14) moderate anxiety, (15-21) severe anxiety Patient Health Questionnaire (PHQ-9) 07/17/2023 09/18/2023 PHQ-9 Score 8 5 (0-4) minimal depression, (5-9) mild depression, (10-14) moderate depression, (15-19) moderately severe depression, (20-27) severe depression PAST MEDICAL HISTORY Diagnosis Date kidney stone PAST SURGICAL HISTORY Procedure Laterality Date ADVANCE SURFACE ABLATION LASEK PRK 2013 both eyes UNSPECIFIED ORAL SURGERY PROCEDURE, BY REPORT [id number] [place] teet removed ALLERGIES No Known Allergies Current Outpatient Medications on File Prior to Visit Medication Sig escitalopram oxalate (LEXAPRO) 20 mg tablet Take 1 tablet by mouth once daily. No current facility-administered medications on file prior to visit. ROS: See HPI PFSH: See HPI VITAL SIGNS: There were no vitals filed for this visit. Last 3 Encounter BP Readings: Date: BP: 06/09/2023 108/62 04/24/2023 100/58 02/22/2019 92/58 MENTAL STATUS EXAMINATION: Mental Status Exam General/Sensorium: Alert Orientation: AAOx3 Appearance: Appears well groomed and stated age and casually dressed Eye contact: Appropriate Demeanor: Appropriately interactive Motor activity: Normal Speech: Appropriate Mood: Anxious Affect: Congruent with mood Thought process: Linear, logical, and goal-directed Associations: Normal Thought content: Discussing stressors and focused on history, symptoms, and management Suicidal ideation: SI: no Plan: no Intent: no Homicidal ideation: HI: no Plan: no Intent: no Abnormal/psychotic thoughts: Absent Perceptions: She does not appear internally stimulated. Intelligence: Average Attention: Intact Memory: Short-term: Intact (more content not included)... [facility] 09-18-2023 History of Presen t illness Narrative Images from the original note were not included. FOLLOW UP - PSYCHIATRIC PROGRESS NOTE PATIENT: Xiomara Benites DATE: September 18, 2023 Visit Type: Virtual Visit utilizing two-way audio and video for at least a portion of the visit. Consent for virtual visit obtained verbally. Confidentiality limitations with virtual visits reviewed with the patient and guardian, if present, who have accepted the risk verbally prior to proceeding with encounter. I have communicated my name and active licensure. The patient's identity and physical location were verified at the time of this visit. Either the patient or their legal retail service representative has been informed of the risks and benefits of -- and alternatives to -- treatment through a remote evaluation and consents to proceed with the evaluation remotely. All information is from Patient report except when noted. This evaluation is NOT intended for forensic, disability or child custody purposes. Some elements were copied from the previous note which have been updated where appropriate and reflect current decision making from today September 18, 2023. CC: Presenting today for follow up regarding psychiatric medication management. HPI: Treatment Plan from Last Visit on 07/17/2023: Increase Lexapro to 20 mg to address anxiety symptoms. Monitor for side effects. Patient aware to reach out sooner with concerns. Consider switching Lexapro to Prozac if patient experiences side effects or experiences lack of benefits at the higher dose. Mom has been treated with Prozac and reported improvement. Complete monitoring lab work to rule out medical reasons for fatigue and anxiety symptoms. Also monitoring for any metabolic side effects. Patient has not been seen by primary care provider for a physical yearly and no lab work available for review in the past year. Today Xiomara shares that the increase in Lexapro has helped manage her anxiety symptoms better. It is helping some . She shares that she noticed that the medication has made her not able to cry easily. Grandmother and she was not able to cry but that did not bother her. Has been able to process the loss well though. With the increase in Lexapro, she feels that her overall feelings of anxiety have improved. I don't panic as much as I used to which is nice . Worries more about things at hand. Such as getting ready to go somewhere right now . Worries about things being done correctly but has a hard time speaking up. Shares that she struggles with anticipatory anxiety. Dreads going to places but then enjoys it when she is there. I am always tired but I have always been tired and I have not noticed that the medicine increase has made it worse . She sleeps 8 to 9 hours at night. Shares that her PCP retired 2 years ago. Needs to establish with a new primary care provider. Will complete lab work as she forgot about it. Interval Progress: Slightly improved PATIENT DATA: Generalized Anxiety Disorder Scale (YARI-7) 07/17/2023 09/18/2023 YARI - 7 SCORES Score 8 6 (0-4) minimal anxiety, (5-9) mild anxiety, (10-14) moderate anxiety, (15-21) severe anxiety Patient Health Questionnaire (PHQ-9) 07/17/2023 09/18/2023 PHQ-9 Score 8 5 (0-4) minimal depression, (5-9) mild depression, (10-14) moderate depression, (15-19) moderately severe depression, (20-27) severe depression PAST MEDICAL HISTORY Diagnosis Date kidney stone PAST SURGICAL HISTORY Procedure Laterality Date ADVANCE SURFACE ABLATION LASEK PRK 2013 both eyes UNSPECIFIED ORAL SURGERY PROCEDURE, BY REPORT [id number] [place] teet removed ALLERGIES No Known Allergies Current Outpatient Medications on File Prior to Visit Medication Sig escitalopram oxalate (LEXAPRO) 20 mg tablet Take 1 tablet by mouth once daily. No current facility-administered medications on file prior to visit. ROS: See HPI PFSH: See HPI VITAL SIGNS: There were no vitals filed for this visit. Last 3 Encounter BP Readings: Date: BP: 06/09/2023 108/62 04/24/2023 100/58 02/22/2019 92/58 MENTAL STATUS EXAMINATION: Mental Status Exam General/Sensorium: Alert Orientation: AAOx3 Appearance: Appears well groomed and stated age and casually dressed Eye contact: Appropriate Demeanor: Appropriately interactive Motor activity: Normal Speech: Appropriate Mood: Anxious Affect: Congruent with mood Thought process: Linear, logical, and goal-directed Associations: Normal Thought content: Discussing stressors and focused on history, symptoms, and management Suicidal ideation: SI: no Plan: no Intent: no Homicidal ideation: HI: no Plan: no Intent: no Abnormal/psychotic thoughts: Absent Perceptions: She does not appear internally stimulated. Intelligence: Average Attention: Intact Memory: Short-term: Intact Long-term: Intact Language: Intact Fund of knowledge: Appropriate Insight: Fair Judgment: Good Gait: Not observed Station: Sitting DATA REVIEWED: Psychiatric scales, Electronic medical record, Labs DIAGNOSIS: Generalized anxiety disorder Malaise and fatigue Encounter for long-term (current) use of medications (primary encounter diagnosis) GAF: -60-51 Moderate symptoms or moderate difficulty in social, occupational or school functioning. TREATMENT PLAN: Continue Lexapro at the same dose to address anxiety symptoms. Patient did not report worsening in fatigue or any sexual side effects. Consider increase in Lexapro dose after reviewing monitoring lab work. Complete fasting monitoring lab work. Establish with a primary care provider as patient has not been seen by a primary care provider since her provider retired 2 years ago. Discussed the importance of establishing with primary care and placed a consult order. MEDICATION CHANGES: Current medication regimen unchanged. Risks and benefits of the medication, including any black box warnings, were discussed with the patient. Patient is aware to reach out with any questions, concerns, or worsening of symptoms prior to the next appointment. Patient educated on risks of substance use in combination with medications and advised that any substance use along with medications may alter their effectiveness. Follow Up: 2 months I spent a total of 28 minutes on the date of the service which included preparing to see the patient, [id number] patient care, completing clinical documentation, and counseling and educating the patient/family/caregiver, ordering medications/labs. ADD ON PSYCHOTHERAPY CODE : No SIGNATURE: Reinier Jim APRN.CNP PATIENT NAME: Xiomara Benites DATE: September 18, 2023 TIME: 11:06 AM documented in this encounter [facility] 07-17-2023 Instructions Reinier Jim APRN.CNP - 07/17/2023 12:19 PM EDT Millameeta Xiomara, It was good to talk with you today. Below is a summary of the plan that we discussed during your appointment for reference. Of course, if you have any questions or concerns do not hesitate to reach out to me via a message or call. Reinier Morris APRN.CNP PLAN AND FOLLOW UP: 1) Increase Lexapro to 20 mg dose. Continue to take it once daily at bedtime. Continue monitoring for benefits and side effects. For those experiencing a suicidal crisis: --call the National Suicide Prevention Lifeline at 980 (163-216-1383) --text the Crisis Text Line (text HOME to 715936) --call 231 and let them know you are having a mental health crisis or go to your nearest Emergency Room for stabilization. --You can also call Mobile Crisis at [phone]. Next appointment: --Schedule in 2 months or sooner if needed -- You may call the department appointment line at [phone] to schedule your appointment. -- Please call my nurse Augusta at [phone] or send me a message in [facility] with any questions or concerns between appointments. documented in this encounter [facility] 07-17-2023 Note HNO ID: [id number] Author: REINIER JIM APRN.CNP Service: ? Author Type: Nurse Practitioner Type: Progress Notes Filed: 07/17/2023 12:29 Note Text: PSYC NEW - PSYCHIATRIC ASSESSMENT PATIENT: Xiomara Benites DATE: July 17, 2023 Patient was seen for an initial evaluation. I have communicated my name and active licensure. The patient's identity and physical location were verified at the time of this visit. Either the patient or their legal retail service representative has been informed of the risks and benefits of -- and alternatives to -- treatment through a remote evaluation and consents to proceed with the evaluation remotely All information is from Patient report except when noted. This evaluation is NOT intended for forensic, disability or child custody purposes. AGE: [age] year old RACE: White REFERRAL SOURCE: [employer]- Kendra Lutz APRN CHIEF COMPLAINT: Well Kendra had prescribed Lexapro for anxiety and I just don't think it is helping with enough. Maybe its helping me a little, I am not sure. HPI: Today Xiomara shares that she has noticed symptoms of anxiety ever since she hit puberty. Her children are 8,6, and 4. Feels that she spent their entire childhood not being happy due to this anxiety. Denies noticing worsening of anxiety or mood symptoms during her menstrual cycle. Sometimes, I don't even know why I have anxiety, I have a great life . Will notice some tightness in her chest at times and feels it squeezing. Has a large extended family and they get along well. Her grandmother and her parents and their siblings have been bickering. Does not like people arguing around her. Denies any intrusive irrational thoughts related to her or her family's well-being. Tends to ruminate about conversations with others and how it could have went. Denies catastrophic thinking. Physical symptoms such as chest tightness, shakiness, and jittering at times. Discussed the difference between panic attack and anxiety attack. Notices her symptoms aligning more with anxiety attack. Notices that her anxiety manifests in irritability. and kids are usually at the receiving end of the anxiety. Looking back she feels that she might have struggled with post depression after her first daughter's . None of these symptoms noticeable in the last 2 pregnancies. Psychiatric ROS: REVIEW OF SYMPTOMS PSYCH: Sleep: No concerns with sleep difficulties. Gets over 8 hours of sleep but always feels exhausted. Never wakes up feeling refreshed. No change in this since starting Lexapro. Takes Lexapro at night. Eating: Patient denies symptoms There is no concern for poor body image or constipation. Depression: Feels that anxiety is what drives the change in her mood. Has anticipatory anxiety and coordinating activities for children before going out with friends. Would like to take time away and do those things with friends. Feels overwhelmed and mentally taxing. Patient reports fatigue. There is no concern for inattention due to mood, hopelessness, helplessness or poor self esteem. Safety: Patient denies symptoms Anxiety: YARI: Feeling overwhelmed and anxious. Gets in the way of her being able to manage things and still make time for herself. Leads to avoidance of social gatherings with friends or self-care. Patient reports ruminative worries at bedtime. OCD: Patient denies symptoms PTSD: Patient denies symptoms Panic Disorder: Patient reports episodes of heart pounding or racing, trembling or shaking and chest pain. Social Anxiety: Patient denies symptoms Current Psychiatric Medication Regimen: Lexapro 10 mg - started 2 months ago. No side effects. No noticeable improvement that she can gauge. But then says, it might be helping very slightly . Thinks that it might have impacted her libido but she doesn't care more about it. Thinks that libido was low to begin with. Past Medication Trials (With Reaction): None Vitamins/Supplements: None VITAL SIGNS: There were no vitals filed for this visit. Last 3 Encounter BP Readings: Date: BP: 06/09/2023 108/62 04/24/2023 100/58 02/22/2019 92/58 ROS All other systems negative. PSYCHIATRIC HISTORY: Prior Diagnosis: Generalized Anxiety Disorder Prior Provider: No Therapist: No [employer] Supervisor: No Last Hospitalization: no ECT/TMS/Ketamine: none Previous Discontinued Psychiatric Med Trials: See HPI SUBSTANCE USE HISTORY: Nicotine: None Vape: now Caffeine: Doesn't really like coffee but drinks hot chocolate a lot. Alcohol: No history of use or dependence Marijuana: No history of use or dependence Cocaine: No history of use or dependence Opioids: No history of use or dependence Other Illicit Substances: none SPIRITUALITY: Catholicism PFSH: Xiomara Benites has 2 siblings. The patient was born and raised in [facility]. Xiomara Benites comp (more content not included)... [facility] 07-17-2023 History of Presen t illness Narrative Images from the original note were not included. PSYC NEW - PSYCHIATRIC ASSESSMENT PATIENT: Xiomara Benites DATE: July 17, 2023 Patient was seen for an initial evaluation. I have communicated my name and active licensure. The patient's identity and physical location were verified at the time of this visit. Either the patient or their legal retail service representative has been informed of the risks and benefits of -- and alternatives to -- treatment through a remote evaluation and consents to proceed with the evaluation remotely All information is from Patient report except when noted. This evaluation is NOT intended for forensic, disability or child custody purposes. AGE: [age] year old RACE: White REFERRAL SOURCE: [employer]- Kendra Lutz APRN CHIEF COMPLAINT: Well Kendra had prescribed Lexapro for anxiety and I just don't think it is helping with enough. Maybe its helping me a little, I am not sure. HPI: Today Xiomara shares that she has noticed symptoms of anxiety ever since she hit puberty. Her children are 8,6, and 4. Feels that she spent their entire childhood not being happy due to this anxiety. Denies noticing worsening of anxiety or mood symptoms during her menstrual cycle. Sometimes, I don't even know why I have anxiety, I have a great life . Will notice some tightness in her chest at times and feels it squeezing. Has a large extended family and they get along well. Her grandmother and her parents and their siblings have been bickering. Does not like people arguing around her. Denies any intrusive irrational thoughts related to her or her family's well-being. Tends to ruminate about conversations with others and how it could have went. Denies catastrophic thinking. Physical symptoms such as chest tightness, shakiness, and jittering at times. Discussed the difference between panic attack and anxiety attack. Notices her symptoms aligning more with anxiety attack. Notices that her anxiety manifests in irritability. and kids are usually at the receiving end of the anxiety. Looking back she feels that she might have struggled with post depression after her first daughter's . None of these symptoms noticeable in the last 2 pregnancies. Psychiatric ROS: REVIEW OF SYMPTOMS PSYCH: Sleep: No concerns with sleep difficulties. Gets over 8 hours of sleep but always feels exhausted. Never wakes up feeling refreshed. No change in this since starting Lexapro. Takes Lexapro at night. Eating: Patient denies symptoms There is no concern for poor body image or constipation. Depression: Feels that anxiety is what drives the change in her mood. Has anticipatory anxiety and coordinating activities for children before going out with friends. Would like to take time away and do those things with friends. Feels overwhelmed and mentally taxing. Patient reports fatigue. There is no concern for inattention due to mood, hopelessness, helplessness or poor self esteem. Safety: Patient denies symptoms Anxiety: YARI: Feeling overwhelmed and anxious. Gets in the way of her being able to manage things and still make time for herself. Leads to avoidance of social gatherings with friends or self-care. Patient reports ruminative worries at bedtime. OCD: Patient denies symptoms PTSD: Patient denies symptoms Panic Disorder: Patient reports episodes of heart pounding or racing, trembling or shaking and chest pain. Social Anxiety: Patient denies symptoms Current Psychiatric Medication Regimen: Lexapro 10 mg - started 2 months ago. No side effects. No noticeable improvement that she can gauge. But then says, it might be helping very slightly . Thinks that it might have impacted her libido but she doesn't care more about it. Thinks that libido was low to begin with. Past Medication Trials (With Reaction): None Vitamins/Supplements: None VITAL SIGNS: There were no vitals filed for this visit. Last 3 Encounter BP Readings: Date: BP: 06/09/2023 108/62 04/24/2023 100/58 02/22/2019 92/58 ROS All other systems negative. PSYCHIATRIC HISTORY: Prior Diagnosis: Generalized Anxiety Disorder Prior Provider: No Therapist: No [employer] Supervisor: No Last Hospitalization: no ECT/TMS/Ketamine: none Previous Discontinued Psychiatric Med Trials: See HPI SUBSTANCE USE HISTORY: Nicotine: None Vape: now Caffeine: Doesn't really like coffee but drinks hot chocolate a lot. Alcohol: No history of use or dependence Marijuana: No history of use or dependence Cocaine: No history of use or dependence Opioids: No history of use or dependence Other Illicit Substances: none SPIRITUALITY: Catholicism [facility]ara Benites has 2 siblings. The patient was born and raised in [facility]. Xiomara Benites completed Master's. Xiomara Benites described childhood as nurturing, loving, and supportive. Children: Has 3 girls, 8, 6, and 4. Denies any major stress with her daughters. Pets: They have farm and have farm animals. Chickens and cats. Support people include: Siblings and Parents. Sister and Sister in law are her top two she could reach out in a crisis. The patient lives with and kids. Marital Status: for 9 years. 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 Service: None Legal: Pt. denied any past legal history FAMILY PSYCHIATRIC HISTORY: Relation Maternal: M Paternal: P Medical History Alcohol Use Drug Use Psychiatric Disorders Suicide attempts or completions Mother Anxiety. On Prozac Father Anxiety? Untreated Grandfather Grandmother M Anxiety and was on medication Great Grandfather M Completed suicide Sister Anxiety. Started Lexapro recently PATIENT DATA: Generalized Anxiety Disorder Scale (YARI-7) 07/17/2023 YARI - 7 SCORES Score 8 (0-4) minimal anxiety, (5-9) mild anxiety, (10-14) moderate anxiety, (15-21) severe anxiety Patient Health Questionnaire (PHQ-9) 07/17/2023 PHQ-9 Score 8 (0-4) minimal depression, (5-9) mild depression, (10-14) moderate depression, (15-19) moderately severe depression, (20-27) severe depression PAST MEDICAL HISTORY Diagnosis Date kidney stone PAST SURGICAL HISTORY Procedure Laterality Date ADVANCE SURFACE ABLATION LASEK PRK 2013 both eyes UNSPECIFIED ORAL SURGERY PROCEDURE, BY REPORT [id number] [place] teet removed ALLERGIES No Known Allergies Current Outpatient Medications on File Prior to Visit Medication Sig escitalopram oxalate (LEXAPRO) 10 mg tablet Take 1 tablet by mouth once daily. cephALEXin (KEFLEX) 500 mg capsule (Patient not taking: Reported on 06/09/2023) multivitamin ( VITAMIN WITH MINERALS) 28 mg iron- 800 mcg tab Take 1 tablet by mouth once daily. (Patient not taking: Reported on 04/24/2023) OTC NUTRITIONAL SUPPLEMENT Fish/Flax Oil capsule, Pt takes 3 daily as needed. (Patient not taking: Reported on 04/24/2023) [id number] (REFRESH OPTIVE ADVANCED, PF,) 0.5-1-0.5 % dpet Use 1 Drop in eyes three times daily. (Patient not taking: Reported on 04/24/2023) No current facility-administered medications on file prior to visit. MENTAL STATUS EXAMINATION: Mental Status Exam General/Sensorium: Alert Orientation: AAOx3 Appearance: Appears well groomed and stated age and casually dressed Eye contact: Appropriate Demeanor: Appropriately interactive Motor activity: Normal Speech: Appropriate Mood: Anxious Affect: Congruent with mood Thought process: Linear, logical, and goal-directed Associations: Normal Thought content: Discussing stressors and focused on history, symptoms, and management Suicidal ideation: SI: no Plan: no Intent: no Homicidal ideation: HI: no Plan: no Intent: no Abnormal/psychotic thoughts: Absent Perceptions: She does not appear internally stimulated. Intelligence: Average Attention: Intact Memory: Short-term: Intact Long-term: Intact Language: Intact Fund of knowledge: Appropriate Insight: Fair Judgment: Good Gait: Not observed Station: Sitting MINI-MENTAL STATUS EXAMINATION: Unable to complete due to time constraint. DATA REVIEWED: Psychiatric scales, Electronic medical record, and PDMP report. PDMP website checked and validated. All prescriptions have been APPROPRIATELY filled. No suspicious activity was identified. 07/17/2023 by Reinier Jim APRN.ISRRAEL DIAGNOSIS: Generalized Anxiety Disorder Fatigue - checking TSH and CBC. Mother had thyroid cancer. TREATMENT PLAN: Increase Lexapro to 20 mg to address anxiety symptoms. Monitor for side effects. Patient aware to reach out sooner with concerns. Consider switching Lexapro to Prozac if patient experiences side effects or experiences lack of benefits at the higher dose. Mom has been treated with Prozac and reported improvement. Complete monitoring lab work to rule out medical reasons for fatigue and anxiety symptoms. Also monitoring for any metabolic side effects. Patient has not been seen by primary care provider for a physical yearly and no lab work available for review in the past year. MEDICATION CHANGES: Lexapro increase to 20 mg. See above for changes Risks and benefits of the medication, including any black box warnings, were discussed with the patient. Patient is aware to reach out with any questions, concerns, or worsening of symptoms prior to the next appointment. Patient educated on risks of substance use in combination with medications and advised that any substance use along with medications may alter their effectiveness. Follow Up: 2 months I spent a total of 60 minutes on the date of the service which included preparing to see the patient, [id number] patient care, completing clinical documentation, obtaining and/or reviewing separately obtained history, counseling and educating the patient/family/caregiver, ordering medications, tests, or procedures, communicating with other HCPs (not separately reported), independently interpreting results (not separately reported), and communicating results to the patient/family/caregiver. ADD ON PSYCHOTHERAPY CODE : No SIGNATURE: Reinier Jim APRN.[facility] PATIENT NAME: Xiomara Benites DATE: July 17, 2023 TIME: 11:05 AM documented in this encounter [facility] 06-30-2023 Telephone encounter Note Patient has been identified by name and date of : Yes Last office visit in this department: 06/09/2023 RX INSTRUCTIONS: Patient aware RX will be sent to pharmacy. No need to notify patient. Patient phones requesting refills as follows: Requested Prescriptions Pending Prescriptions Disp Refills escitalopram oxalate (LEXAPRO) 10 mg tablet 30 tablet 1 Sig: Take 1 tablet by mouth once daily. Please review and advise. Jacklyn Mcfarland [facility] Work Phone: 06-30-2023 Miscellaneous Notes Patient has been identified by name and date of : Yes Last office visit in this department: 06/09/2023 RX INSTRUCTIONS: Patient aware RX will be sent to pharmacy. No need to notify patient. Patient phones requesting refills as follows: Requested Prescriptions Pending Prescriptions Disp Refills escitalopram oxalate (LEXAPRO) 10 mg tablet 30 tablet 1 Sig: Take 1 tablet by mouth once daily. Please review and advise. Jacklyn Teague Pss documented in this encounter [facility] 06-09-2023 Note HNO ID: [id number] Author: KENDRA LUTZ APRN.LUPIS Service: ? Author Type: [employer] Type: Progress Notes Filed: 06/09/2023 16:35 Note Text: Xiomara Benites is a 37 year old female who presents for follow up visit. She started taking Lexapro 20 mg PO daily for anxiety around 4 weeks ago. Does not notice any difference in anxiety levels. Denies having any negative side effects from the medicine but continues to have increasing anxiety. OB History T3 L3 SAB0 IAB0 Ectopic0 Multiple0 Live Births3 Promotions Director History LMP: 04/07/2023 (Approximate), Unknown Age at Menarche: Age at First : Age at Menopause: Promotions Director History Comments: Sexual Activity: Not Asked; Male; Patient not asked at this visit. 02/16/2017 Contraception: No contraception data on record REVIEW OF SYSTEMS Abdomen: No bloating, early satiety, indigestion, or increased flatulence. No abdominal pain, nausea, vomiting, diarrhea, or constipation. Bladder: No dysuria, gross hematuria, urinary frequency, urinary urgency, or incontinence. Breast: No breast lumps, nipple d/c, overlying skin changes, redness or skin retraction. Expanded ROS: N/A Allergies and current medication updated:Yes EXAM: BP 108/62 Wt 115 lb 9.6 oz (52.4kg) LMP 04/07/2023 GENERAL: pleasant, female in mild distress HEENT: Normocephalic and atraumatic NECK: Supple DERMATOLOGY: Normal and without lesions BREAST: deferred CHEST: Normal inspiratory effort ASSESSMENT/PLAN: 1. Anxiety - ICD9: 300.00, ICD10: F41.9 - YARI score - 13 - Continue Lexapro 20 mg PO daily. Discussed that medication can sometimes take time to work at full potential - Referral for psychology for evaluation and medication management - Patient agrees with plan of care - RTO 3 months for follow up [facility] History of Presen t illness Narrative Xiomara Benites is a 37 year old female who presents for follow up visit. She started taking Lexapro 20 mg PO daily for anxiety around 4 weeks ago. Does not notice any difference in anxiety levels. Denies having any negative side effects from the medicine but continues to have increasing anxiety. OB History T3 L3 SAB0 IAB0 Ectopic0 Multiple0 Live Births3 Promotions Director History LMP: 04/07/2023 (Approximate), Unknown Age at Menarche: Age at First : Age at Menopause: Promotions Director History Comments: Sexual Activity: Not Asked; Male; Patient not asked at this visit. 02/16/2017 Contraception: No contraception data on record REVIEW OF SYSTEMS Abdomen: No bloating, early satiety, indigestion, or increased flatulence. No abdominal pain, nausea, vomiting, diarrhea, or constipation. Bladder: No dysuria, gross hematuria, urinary frequency, urinary urgency, or incontinence. Breast: No breast lumps, nipple d/c, overlying skin changes, redness or skin retraction. Expanded ROS: N/A Allergies and current medication updated:Yes EXAM: BP 108/62 Wt 115 lb 9.6 oz (52.4kg) LMP 04/07/2023 GENERAL: pleasant, female in mild distress HEENT: Normocephalic and atraumatic NECK: Supple DERMATOLOGY: Normal and without lesions BREAST: deferred CHEST: Normal inspiratory effort ASSESSMENT/PLAN: 1. Anxiety - ICD9: 300.00, ICD10: F41.9 - YARI score - 13 - Continue Lexapro 20 mg PO daily. Discussed that medication can sometimes take time to work at full potential - Referral for psychology for evaluation and medication management - Patient agrees with plan of care - RTO 3 months for follow up Kendra Lutz APRN.CNM documented in this encounter [facility] 04-24-2023 Note HNO ID: [id number] Author: KENDRA LUTZ APRN.CNM Service: ? Author Type: [employer] Type: Progress Notes Filed: 04/24/2023 16:16 Note Text: Xiomara is a 37 year old who presents for an annual gynecologic exam with complaints of continued increasing anxiety. Stated has always had anxiety but continues to worsen. Positive for panic attacks. Nothing specific triggering just general anxiety and is tired of feeling so anxious. Menses: cycles every 25 days and 5 days of flow. Contraception: none HPV vaccine: No Last Pap: 03/16/2016 normal HPV: N/A History of abnormal pap: No Last mammogram: never Sexually active: Yes History of STDS: None Pain with intercourse: No Postcoital bleeding: No Hot flashes: No Night sweats: No Vaginal dryness: No OB History T3 L3 SAB0 IAB0 Ectopic0 Multiple0 Live Births3 Promotions Director History LMP: 02/23/2018 (Approximate), Unknown Age at Menarche: Age at First : Age at Menopause: Promotions Director History Comments: Sexual Activity: Not Asked; Male; Patient not asked at this visit. 02/16/2017 Contraception: No contraception data on record PAST MEDICAL HISTORY Diagnosis Date kidney stone PAST SURGICAL HISTORY Procedure Laterality Date ADVANCE SURFACE ABLATION LASEK PRK 2014 both eyes UNSPECIFIED ORAL SURGERY PROCEDURE, BY REPORT [id number] [place] teet removed FAMILY HISTORY Problem Relation Age of Onset Cancer Mother thyroid Breast Cancer Mother No Known Problems Father other (mesothelioma) Paternal Grandfather Cancer Maternal Grandfather Carcinoid No Known Problems Paternal Grandmother No Known Problems Maternal Grandmother No Known Problems Sister No Known Problems Brother SOCIAL HISTORY Social History Tobacco Use Smoking status: Never Smokeless tobacco: Never Substance Use Topics Alcohol use: Yes Comment: Not while Drug use: No REVIEW OF SYSTEMS Abdomen: No abdominal pain, nausea, vomiting, diarrhea, or constipation. No bloating, early satiety, indigestion, or increased flatulence. Bladder: No dysuria, gross hematuria, urinary frequency, urinary urgency, or incontinence. Breast: No breast lumps, nipple d/c, overlying skin changes, redness or skin retraction. Allergies and current medication updated:Yes EXAM: BP 100/58 Ht 5' 2.5 (1.59m) Wt 113 lb (51.3kg) LMP 04/07/2023 BMI 20.33 kg/(m2). GENERAL: pleasant, female in mild distress HEENT: Normocephalic NECK: Supple and full range of motion DERMATOLOGY: Normal and without lesions BREAST: soft, non-tender, symmetric, no dominant mass, normal nipple-areolar complex, no lymphadenopathy, and no nipple discharge CHEST: Normal inspiratory effort ABDOMEN: soft, non-tender, and no masses PELVIC: external genitalia normal, normal Bartholin's glands, urethra, [place]'s glands, no vulvar lesions, no cervical lesions, good vaginal support, physiologic discharge present, normal appearing perineal body and perianal region BIMANUAL: uterus normal size, shape and consistency, no adnexal masses, non-tender, and no cervical motion tenderness RECTOVAGINAL: deferred. NEURO: alert and oriented x3,exam grossly non-focal EXTREMITIES: normal ASSESSMENT/PLAN: 1) Health maintenance: Pap done with reflex HPV. Nutrition, exercise and routine health maintenance exams reviewed. 2) Contraception: none. Would be accepting of - recommended vitamin 3) STD screening: Declined STD check. 4) Lexapro 10 mg PO daily x 1 week then increase to Lexapro 20 mg PO daily. Reviewed R/B/A to medications and s/s to report May opt for counseling in future Kendra Lutz APRN.LUPIS [facility] 07-10-2018 History of Past i llness Narrative Problem Noted Date Diagnosed Date Resolved Date cardiac echogenic focus 07/10/2018 01/09/2019 Overview: 07/10/18-Anatomy U/S with echogenic focus. consulted for MaterniT 21 testing. Norah Douglas APRN.LUPIS History of kidney stones 04/12/2018 Overview: 04/12/2018Patient has a history of kidney stones her last when she was 6 months . Able to pass stones on own.TKRN Punctate keratitis, bilateral 02/16/2017 08/07/2018 Family history of Down syndrome 03/10/2016 05/31/2016 Overview: 03/10/2016FOB's brother with Down Syndrome. Patient considering nuchal ultrasound. TKRN S/P ASA (advanced surface ab lation) surgery PRK (photorefractive keratectomy) 03/08/20162016 Vitreous floaters of both eyes 01/28/2015 06/28/2016 Other vitreous opacities - Both Eyes 02/14/2014 06/28/2016 Encounter for supervision of other normal , first trimester 01/16/2014 01/09/2019 Overview: RR- Gender surprise Family history of Down syndrome 01/16/2014 03/10/2016 Overview: 04/12/2018 FOB's brother with Down Syndrome and heart defect. TKRN. S/P LASIK surgery of both eyes - Both Eyes 10/21/2013 03/08/2016 Progressive high (degenerati ve) myopia - Both Eyes 10/21/2013 06/28/2016 Acne 08/07/2013 01/16/2014 documented as of this encounter (statuses as of 06/09/2023) [facility] Anxiety- Primary Anxiety state, unspecified documented in this encounter [facility] Diagnosis Malaise and fatigue- Primary Other malaise and fatigue Generalized anxiety disorder Encounter for long-term (current) use of medications Encounter for long-term (current) use of other medications documented in this encounter [facility] Diagnosis Encounter for long-term (current) use of medications- Primary Encounter for long-term (current) use of other medications Generalized anxiety disorder Malaise and fatigue Other malaise and fatigue documented in this encounter [facility] Diagnosis Encounter for long-term (current) use of medications- Primary Encounter for long-term (current) use of other medications documented in this encounter [facility] Summary Purpose Family History No Family History Records FoundNo Family History Records Found Advance Directives No Advanced Directives Records FoundNo Advanced Directives Records Found Reason for Referral Specialty Diagnoses / Procedures Referred By Malina t Referred To Contact Diagnoses Encounter for long-term (current) use of medications Malaise and fatigue Procedures ESTABLISH WITH PRIMARY CARE NEW PATIENT OFFICE/OUTPATIENT [facility] 60 MINUTES Reinier Jim, [employer] ATTENDANT.[employer] [address] [place] [address] Referral ID Status Reason Start Date Expiration Date Visits Requested Visits Authorized [id number] Authorized PCP Requested Referral 09/18/2023 09/17/2024 1 1 Additional Source Comments INFORMATION SOURCE (unrecogn ized section and content) DATE CREATED AUTHOR 08/22/2017 [facility] ([place]) DATE CREATED AUTHOR AUTHOR'S ORGANIZ ATION 11/21/2023 [facility] Source Comments (unrecognize d section and content) In the event this informatio n is protected by the Federal Confidentiality of Alcohol and Drug Abuse Patient Records regulations: The Federal rules restrict any use of the information to criminally investigate or prosecute any alcohol or drug abuse patient.[facility] the event this information is protected by the Federal Confidentiality of Alcohol and Drug Abuse Patient Records regulations: The Federal rules restrict any use of the information to criminally investigate or prosecute any alcohol or drug abuse patient.[facility] the event this information is protected by the Federal Confidentiality of Alcohol and Drug Abuse Patient Records regulations: The Federal rules restrict any use of the information to criminally investigate or prosecute any alcohol or drug abuse patient.[facility] the event this information is protected by the Federal Confidentiality of Alcohol and Drug Abuse Patient Records regulations: The Federal rules restrict any use of the information to criminally investigate or prosecute any alcohol or drug abuse patient.[facility] the event this information is protected by the Federal Confidentiality of Alcohol and Drug Abuse Patient Records regulations: The Federal rules restrict any use of the information to criminally investigate or prosecute any alcohol or drug abuse patient.[facility] Reason for Visit (unrecogniz ed section and content) Reason Comments Follow Up Lexapro Reason Onset Date Comments Refill Request 06/30/2023 Reason Comments New Patient Evaluation Reason Comments Follow Up Reason Comments need new lab orders Care Teams (unrecognized sec tion and content) Account Services Associate Relationship Specialty Start Date End Date Meek Connolly III PCP - General Family Medicine 09/20/12 Account Services Associate Relationship Specialty Start Date End Date Meek Connolly III PCP - General Family Medicine 09/20/12 Account Services Associate Relationship Specialty Start Date End Date Meek Connolly III PCP - General Family Medicine 09/20/12 Account Services Associate Relationship Specialty Start Date End Date Meek Connolly III PCP - General Family Medicine 09/20/12 Account Services Associate Relationship Specialty Start Date End Date Christa Wilkinson APRN.[facility] [address] [place] [address] PCP - General Family Medicine 11/06/23 FOR RECORDS PERTAINING TO PATIENTS WHO ARE OR HAVE BEEN ENROLLED IN A CHEMICAL DEPENDENCY/SUBSTANCEABUSE PROGRAM, SOME INFORMATION MAY BE OMITTED. This clinical summary was aggregated from multiple sources. Caution should be exercised in using it in the provision of clinical care. This summary normalizes information from multiple sources, and as a consequence, information in this document may materially change the coding, format and clinical context of patient data. In addition, data may be omitted in some cases. CLINICAL DECISIONS SHOULD BE BASED ON THE PRIMARY CLINICAL RECORDS. [employer] [facility]. provides no warranty or guarantee of the accuracy or completeness of information in this document.
[2023-11-23 14:41] LABS: Absolute Lymphocyte Count 1.96 X10^3/uL (0.83-4.51); Absolute Neutrophil Count 3.8 X10^3/uL (2.0-7.7); Basophil# 0.09 X10^3/uL; Basophil% 1.4 % (0-1); Eosinophil# 0.12 X10^3/uL; Eosinophils% 1.9 % (0-5); Hematocrit 39.8 % (37-47); Hemoglobin 12.9 g/dL (12.0-15.0); Lymphocyte # 1.96 X10^3/ul (0.83-4.51); Lymphocyte % 30.7 % (19-41); Mean Corp Hgb Conc 32.4 g/dL (32-36); Mean Corpuscular Hgb 29.9 pg (27.0-32.0); Mean Corpuscular Volume 92.3 fL (81-99); Mean Platelet Vol. 10.6 fl (6.2-12.0); Monocyte# 0.38 X10^3/uL; NRBC Flagged by Analyzer 0 % (0-5); Neutrophil % 59.5 % (47-70); Platelet Count 207 K/mm3 (150-450); RBC Distribution Width SD 44.1 fl (35.1-43.9); Red Blood Count 4.31 M/mm3 (4.2-5.4); White Blood Count 6.4 K/mm3 (4.4-11.0)
[2023-11-23 15:05] LABS: ALB/GLOB Ratio 1.4 RATIO (0.9-2.4); AST(SGOT) 26 U/L (15-37); Alanine Aminotransfer ALT/SGPT 28 U/L (13-56); Albumin, Serum 4.2 g/dL (3.2-5.0); Alkaline Phosphatase 44 U/L (45-117); Anion Gap 5 (5-15); BUN 12 mg/dL (7-18); BUN/Creat Ratio 17.8 RATIO (10-20); Calcium,Total 9.1 mg/dL (8.5-10.1); Chloride 108 mmol/L (98-107); Cholesterol 177 mg/dL (200); Creatinine, Serum 0.67 mg/dL (0.55-1.02); EST Glomerular Filtration Rate 105 mL/min (>60); Est Glom Filt Rate - Afr Amer 127 mL/min (>60); Glucose 84 mg/dL (74-106); High Density Lipoprotein 57 mg/dL; Potassium 4.1 mmol/L (3.5-5.1); Protein, Total 7.2 g/dL (6.4-8.2); Sodium Level 140 mmol/L (136-145); Triglycerides 60 mg/dL; Very Low Density Lipoprotein 12 mg/dL (5-40)
== END | disposition home or self-care (01) ==
PROVIDERS: PCP Nurse Practitioner Adult Health
DX: Z79.899 Other long term (current) drug therapy (principal)
CPT/HCPCS: 36415; 80053; 80061; 84443; 85025

== ENCOUNTER → 2024-04-29 | Outpatient (CLI) | payer OTHER, SELFPAY ==
[2024-04-29 14:30] LABS: Hematocrit 38.1 % (37-47); Hemoglobin 12.5 g/dL (12.0-15.0); Mean Corp Hgb Conc 32.8 g/dL (32-36); Mean Corpuscular Hgb 30.3 pg (27.0-32.0); Mean Corpuscular Volume 92.5 fL (81-99); Mean Platelet Vol. 10.5 fl (6.2-12.0); Platelet Count 201 K/mm3 (150-450); RBC Distribution Width SD 44.4 fl (35.1-43.9); Red Blood Count 4.12 M/mm3 (4.2-5.4); White Blood Count 7.7 K/mm3 (4.4-11.0)
[2024-04-29 15:13] LABS: Free T3 2.1 pg/mL (2.18-3.98); T4 Total, Thyroxin 4.2 ug/dL (4.8-13.9)
== END | disposition home or self-care (01) ==
LOC: LAB 13:43
PROVIDERS: PCP Nurse Practitioner Adult Health; Referring Provider Advanced Practice Midwife; Visit Provider Advanced Practice Midwife
DX: R53.81 Other malaise (principal); R53.83 Other fatigue
CPT/HCPCS: 36415; 82306; 84436; 84439; 84443; 84481; 85027

== ENCOUNTER → 2024-10-22 | Outpatient (CLI) | payer OTHER, SELFPAY ==
[2024-10-22 18:10] LABS: Vitamin D,25 Hydroxy 57.6 ng/mL (30-100)
== END | disposition home or self-care (01) ==
LOC: LAB 16:21
PROVIDERS: PCP Nurse Practitioner Adult Health; Referring Provider Nurse Practitioner Adult Health; Visit Provider Nurse Practitioner Adult Health
DX: E55.9 Vitamin D deficiency, unspecified (principal)
CPT/HCPCS: 36415; 82306